=== PATIENT | female | born 1945 | race Caucasian/White ===

== ENCOUNTER → 2016-11-05 | Outpatient (REF) | payer MEDICARE ==
[~2016-11-05] MED LIST: /PANT40TA PO; ASPI81TA85 PO; CITRACAL PO; CRES5TAB PO; CYMB1CAP PO; FLUC100T PO; IBUP80TA PO; MYCO500T PO; NEUR600T PO; OMEG100011 PO; REFROIN OU; RELP40TA PO; SING5CHW PO; SYNT50TA PO; TEMA30CA PO; VITAD1000T PO; [UNRECOGNIZED DRUG - CODE] TOP; skelaxin PO
[2016-11-05 17:30] LABS: PERCENT SATURATION 22.8 % (13.2-37.4)
== END ==
LOC: M LAB REF 16:40
PROVIDERS: ATTEND Internal Medicine
DX: Z14.8 Genetic carrier of other disease (principal)

== ENCOUNTER 2016-12-07 17:06 | Emergency (ER) | payer MEDICARE ==
[~2016-12-07] VITALS: Ht 149.9 cm; Wt 49.2 kg
[2016-12-07 17:06] VITALS: BP 144/71
[~2016-12-07 17:06] MED LIST changes: -CLOT10TR MT; -FENT12PA TD; -FENT25PA TD; -FISH1000 PO; -GABA600T PO; -HYDR100T PO; -LANS15CA PO; -LEVO25TA5 PO; -LEVO500T3 PO; -LEVO50TA5 PO; -LIDO1KIT9 TOP; -METR0.00 TOP; -MONT10TA2 PO; -MORP-38 PO; -MORP15TA2 PO; -NORCOTAB PO; -ONDA4TAB6 PO; -ROSU5TAB PO; -SF 51.1C MT; -TEMA15CA2 PO; -TEMA7.5C PO; -VITA-182 PO
[2016-12-07] MEDS ORDERED: METR0.00 TOP (17:39)
[2016-12-07] MEDS ORDERED: LANS15CA PO (17:39)
[2016-12-07] MEDS ORDERED: TEMA7.5C PO (17:39)
[2016-12-07] MEDS ORDERED: RELP40TA PO (17:39)
[2016-12-07] MEDS ORDERED: FENT12PA TD (17:39)
[2016-12-07] MEDS ORDERED: TEMA15CA2 PO (17:39)
[2016-12-07] MEDS ORDERED: ROSU5TAB PO (17:39)
[2016-12-07] MEDS ORDERED: NORCOTAB PO (17:55)
[2016-12-07] MEDS ORDERED: NORCO, ANEXSIA 5/325MG TABLET (HYDROcodone/ACETAMINOPHEN) PO ONE (18:00)
[2017-01-22] MEDS ORDERED: FENT25PA TD (09:35)
[2017-01-22] MEDS ORDERED: VITA-182 PO (09:35)
[2017-01-22] MEDS ORDERED: LEVO25TA5 PO (09:35)
[2017-01-22] MEDS ORDERED: FISH1000 PO (09:35)
[2017-01-22] MEDS ORDERED: GABA600T PO (09:35)
[2017-01-22] MEDS ORDERED: MORP15TA2 PO (09:35)
[2017-01-22] MEDS ORDERED: MORP-38 PO (09:35)
[2017-02-08] MEDS ORDERED: ONDA4TAB6 PO (16:31)
[2017-02-08] MEDS ORDERED: LEVO500T3 PO (16:31)
[2017-03-04] MEDS ORDERED: HYDR100T PO (17:32)
== END 2016-12-07 18:05 | disposition home or self-care (01) ==
LOC: M ED 17:06
DX: M54.17 Radiculopathy, lumbosacral region (principal); M54.42 Lumbago with sciatica, left side; G89.29 Other chronic pain; J45.909 Unspecified asthma, uncomplicated; M79.7 Fibromyalgia; E78.9 Disorder of lipoprotein metabolism, unspecified; E07.9 Disorder of thyroid, unspecified; G25.81 Restless legs syndrome; G43.909 Migraine, unspecified, not intractable, without status migrainosus; Z91.041 Radiographic dye allergy status; Z88.8 Allergy status to other drugs, medicaments and biological substances; Z88.5 Allergy status to narcotic agent; Z79.899 Other long term (current) drug therapy; Z79.891 Long term (current) use of opiate analgesic

== ENCOUNTER → 2016-12-07 | Outpatient (CLI) | payer MEDICARE ==
[~2016-12-07] MED LIST changes: +CLOT10TR MT; +FENT12PA TD; +FENT25PA TD; +FISH1000 PO; +GABA600T PO; +HYDR100T PO; +LANS15CA PO; +LEVO25TA5 PO; +LEVO500T3 PO; +LEVO50TA5 PO; +LIDO1KIT9 TOP; +METR0.00 TOP; +MONT10TA2 PO; +MORP-38 PO; +MORP15TA2 PO; +NORCOTAB PO; +ONDA4TAB6 PO; +ROSU5TAB PO; +SF 51.1C MT; +TEMA15CA2 PO; +TEMA7.5C PO; +VITA-182 PO
--- NOTE | 2016-12-07 12:58 | REP ---
Clinical: Radiculopathy. Technique: Axial noncontrast images from mid T11 through mid sacrum with coronal and sagittal re-formations. Comparison: 04/12/2015. Findings: Alignment and lordosis maintained and there is no evidence for acute fracture / compression injury or subluxation. Small posterior disc bulges are suggested at the L2-3 and L5-S1 levels without significant hypertrophic facet changes, canal stenosis or narrowing of the lateral recesses/neural foramen. Small posterior disc bulges at the L3-4 and L4-5 levels coupled with mild hypertrophic facet arthropathy and ligamentum hypertrophy cause minimal effacement of the anterior thecal sac and mild canal stenosis without evidence for neural foraminal narrowing or impingement of the exiting nerve roots. Impression: 1. Mild posterior disc bulges at L2-3 through L5-S1 with mild facet arthropathy and minimal canal stenosis at the L3-4 and L4-5 levels. 2. Normal alignment and lordosis without fracture / compression injury or subluxation. Signed by Urban Jenkins MD 12/07/2016 12:49 P
== END ==
LOC: M RAD 09:35
PROVIDERS: ATTEND Registered Nurse Critical Care Medicine
DX: M51.26 Other intervertebral disc displacement, lumbar region (principal); M54.5 Low back pain; M54.17 Radiculopathy, lumbosacral region; M54.42 Lumbago with sciatica, left side; G89.29 Other chronic pain; J45.909 Unspecified asthma, uncomplicated; M79.7 Fibromyalgia; E78.9 Disorder of lipoprotein metabolism, unspecified; E07.9 Disorder of thyroid, unspecified; G25.81 Restless legs syndrome; G43.909 Migraine, unspecified, not intractable, without status migrainosus; Z91.041 Radiographic dye allergy status; Z88.5 Allergy status to narcotic agent; Z88.8 Allergy status to other drugs, medicaments and biological substances; Z79.899 Other long term (current) drug therapy; Z79.891 Long term (current) use of opiate analgesic

== ENCOUNTER → 2017-01-07 | Outpatient (REF) | payer MEDICARE ==
[~2017-01-07] MED LIST changes: +CLOT10TR MT; +FENT12PA TD; +FENT25PA TD; +FISH1000 PO; +GABA600T PO; +HYDR100T PO; +LANS15CA PO; +LEVO25TA5 PO; +LEVO500T3 PO; +LEVO50TA5 PO; +LIDO1KIT9 TOP; +METR0.00 TOP; +MONT10TA2 PO; +MORP-38 PO; +MORP15TA2 PO; +NORCOTAB PO; +ONDA4TAB6 PO; +ROSU5TAB PO; +SF 51.1C MT; +TEMA15CA2 PO; +TEMA7.5C PO; +VITA-182 PO
[2017-01-07 12:42] LABS: INR 0.97
[2017-01-07 12:44] LABS: BASO % 0.7 % (0.0-1.0); EOS % 0.8 % (0.0-3.0); LARGE UNSTAINED CELL # 0.1 K/mm3 (0.0-0.4); LARGE UNSTAINED CELL % 1.3 % (0.0-4.0); LYMPH # 1.6 K/mm3 (1.5-4.5); LYMPH % 23.2 % (24.0-44.0); MEAN CORPUSCULAR HEMOGLOBIN 31.5 pg (27.0-33.0); MEAN CORPUSCULAR HGB CONC 34.2 g/dl (32.0-36.5); MEAN CORPUSCULAR VOLUME 92.3 fl (80.0-96.0); MONO # 0.4 K/mm3 (0.0-0.8); MONO % 5.4 % (0.0-5.0); NEUTROPHILS # 4.5 K/mm3 (1.8-7.7); NEUTROPHILS % 68.6 % (36.0-66.0); PLATELET COUNT, AUTOMATED 180 k/mm3 (150-450); RED CELL DISTRIBUTION WIDTH 12.6 % (11.5-14.5); WHITE BLOOD COUNT 6.5 K/mm3 (4.0-10.0)
[2017-01-07 12:47] LABS: BLOOD UREA NITROGEN 9 MG/DL (7-18); CREATININE FOR GFR 0.76 MG/DL (0.55-1.02); GLOMERULAR FILTRATION RATE > 60.0 (>39)
== END ==
LOC: M LABDRAW1 11:20
PROVIDERS: ATTEND Physician Assistant Surgical
DX: M51.36 Other intervertebral disc degeneration, lumbar region (principal); M54.16 Radiculopathy, lumbar region

== ENCOUNTER 2017-02-03 12:33 | Inpatient (IN) | payer MEDICARE ==
[~2017-02-03] VITALS: Ht 149.9 cm; Wt 64.4 kg
[~2017-02-03 12:33] MED LIST changes: -CLOT10TR MT; -HYDR100T PO; -LEVO500T3 PO; -LEVO50TA5 PO; -LIDO1KIT9 TOP; -MONT10TA2 PO; -ONDA4TAB6 PO; -SF 51.1C MT
[2017-02-03] MEDS ORDERED: NS 500 ML IV ONE (13:00)
--- NOTE | 2017-02-03 13:21 | REP ---
CT Head without contrast HISTORY: Syncope COMPARISON: None Areas of decreased attenuation are present in the periventricular and subcortical white matter. This represents small-vessel ischemic disease. There is no intraparenchymal hemorrhage, acute infarct, mass or midline shift. The ventricular system is normal in appearance. There is no extra cerebral collection. There is no fracture. The visualized sinuses are clear. IMPRESSION: Small vessel ischemic disease. Signed by Дмитрий Menendez MD 02/03/2017 01:12 P
[2017-02-03 13:27] LABS: ADD MANUAL DIFFER YES; DIFF SLIDE NUMBER 226; MEAN CORPUSCULAR HEMOGLOBIN 31.6 pg (27.0-33.0); MEAN CORPUSCULAR HGB CONC 35.2 g/dl (32.0-36.5); MEAN CORPUSCULAR VOLUME 89.7 fl (80.0-96.0); PLATELET COUNT, AUTOMATED 139 k/mm3 (150-450); RED CELL DISTRIBUTION WIDTH 12.4 % (11.5-14.5)
[2017-02-03 13:41] LABS: INR 1.09
[2017-02-03 13:47] LABS: ALBUMIN 3.2 GM/DL (3.2-5.2); ALBUMIN/GLOBULIN RATIO 0.78 (1.00-1.93); ALKALINE PHOSPHATASE 84 U/L (45-117); ALT/SGPT 27 U/L (12-78); ANION GAP 11 MEQ/L (8-16); AST/SGOT 37 U/L (15-37); BILIRUBIN,DIRECT 0.2 MG/DL (0.0-0.2); BILIRUBIN,TOTAL 0.8 MG/DL (0.2-1.0); BLOOD UREA NITROGEN 7 MG/DL (7-18); CALCIUM LEVEL 9.5 MG/DL (8.8-10.2); CARBON DIOXIDE LEVEL 23 MEQ/L (21-32); CHLORIDE LEVEL 99 MEQ/L (98-107); CREATININE FOR GFR 0.87 MG/DL (0.55-1.02); GLOMERULAR FILTRATION RATE > 60.0 (>39); GLUCOSE, FASTING 95 MG/DL (83-110); POTASSIUM SERUM 3.5 MEQ/L (3.5-5.1); SODIUM LEVEL 133 MEQ/L (136-145); TOTAL PROTEIN 7.3 GM/DL (6.4-8.2)
--- NOTE | 2017-02-03 13:47 | REP ---
PORTABLE CHEST X-RAY: Sitting AP view. HISTORY: Sepsis, shock. COMPARISON STUDY: April 16, 2016. FINDINGS: EKG monitoring electrodes overlie the chest. The patient is status post a ventral discectomy and fusion plating in the lower cervical spine. A dorsal column stimulator is seen in the mid thoracic spine. The lungs are well inflated and clear. The heart is not enlarged. Aorta is somewhat tortuous. No significant bony abnormality is seen. IMPRESSION: No active cardiopulmonary disease. Dorsal column stimulator and cervical spine fusion plate seen. Signed by Neil Diane MD 02/03/2017 05:02 P
[2017-02-03 13:59] LABS: BANDS 10 % (< 11)
--- NOTE | 2017-02-03 15:14 | HPEPDOC ---
Medical History and Physical Date of Admission 02/03/17 History and Physical ATTENDING: Dr. Vázquez PCP: Dr Wynne CC: syncopal episode HPI: 71yoF with a past medical history significant for hypothyroid, HLD, GERD, migraine AMBROCIO who states she most recently had a CT myelogram in [place] 01/14/17 through [facility]. She was given steroid course after procedure and was treated for thrush. Over past 1 week she has noticed thoracic spine pain. Wednesday nausea and vomiting with decreased po intake since Wednesday. Yesterday feeling weak and lethargic, nauseated and last PM noticed fever 101-102. This AM she recalls getting OOB and felt weak and dizzy and states she had syncopal episode at bedside, states she does not recall episode. later found her at bathroom door weak and shaky. Also noted AMBROCIO this AM now much worse with photophobia and requesting triptan. Denies any CP, SOB, cough, palpitations, no abdominal pain or changes in bowel or bladder habits. Upon presentation to the hospital the patient was found to have syncopal episode , thus the hospitalist team was consulted. PMHx: hypothyroid migraine AMBROCIO. Dr Thompson. HLD anxiety/insomnia RLS chronic pain/chronic back pain/hip pain. [facility]. 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 ROS: As noted in HPI, otherwise 11pt ROS of systems reviewed and remarkable only for recent CT Myelogram [place] 01/14/17. Seeing Orthopedics Dr May for hip pain and [facility] pain. PE: GEN: 71yoF, appears stated age. reporting pain and photophobia related to migraine pain currently. Alert and oriented x 3. HEENT: Normocephalic, atraumatic. Pupils are equal, round, and reactive to light. Extraocular movements are intact. No nystagmus appreciated. Sclera are nonicteric. Conjunctiva without injection. Nose midline. Nasal turbinates without bogginess. EACs both patent BL. TMs both visualized and gibbs with good cone of light, no bulging or erythema. No facial asymmetry. Moist mucous membranes. Dentition fair. Pharynx pink and moist, no cobblestoning. Neck supple , trachea midline. No lymphadenopathy or thyromegaly appreciated. CHEST: Regular rate and rhythm, +S1, +S2 LUNGS: Clear to auscultation bilaterally. No wheezes, rales, or rhonchi. Breathing appears symmetric and easy. Patient is speaking in full sentences. No accessory muscle use. ABD: Round, soft, non-tender, non-distended. +Bowel sounds throughout. No rebound or guarding. No costovertebral angle tenderness. EXT: Pulses 2+ bilaterally dorsalis pedis and radial. No lower extremity edema appreciated. SKIN: [place], dry, warm. Capillary refill <2sec. No rashes. NEURO: Alert and oriented x 3. Cranial nerves III-XII are intact. healed surgical scar noted thoracic spine area, TTP is noted over lower aspect of incision area. CXR: No active cardiopulmonary disease. Dorsal column stimulator and cervical spine fusion plate seen CT: small vessel disease BLOOD CULTURES: x 2 pending. A&P: 71yoF with a past medical history significant for hypothyroid, HLD, GERD, migraine AMBROCIO who states she most recently had a CT myelogram in [place] 01/14/17 through [facility]. She was given steroid course after procedure and was treated for thrush. Over past 1 week she has noticed thoracic spine pain. Wednesday nausea and vomiting with decreased po intake since Wednesday. Yesterday feeling weak and lethargic, nauseated and last PM noticed fever 101-102. This AM she recalls getting OOB and felt weak and dizzy and states she had syncopal episode at bedside, states she does not recall episode. later found her at bathroom door weak and shaky. Also noted AMBROCIO this AM now much worse with photophobia and requesting triptan. 1. The patient will be admitted to PCU for at least 2midnights to Dr. Vázquez's service. Pt is discussed with Dr Worthy. 2. N/V/Weakness/fever. IVF at 100cc/hr. Zofran as needed. BC/UC pending. ESR/ CRP pending. 3. Thoracic spine pain (h/o CT myelogram in [place] 01/14/17) CT with contrast head, T spine and LS spine. Premedicate for possible allergy to contrast. Consider ID CLt if needed. IV Cefepime/Vanco. Dosing as per Clinical pharmacology. 4. Syncope. PCU/TM. 5. Chronic pain. Continue Fentanyl patch, pt has not been using Morphine. 6. Asthma. Continue Singulair. 7. Hypothyroid. Cont supplement. 8. Thrush. Pt to finish course of Mycelex. 9. Insomnia. Restoril. 10. HLD. Crestor. DVT prophylaxis. Lovenox. The patient is a Full code. Vital Signs Vital Signs Date Time Temp Pulse Resp B/P (MAP) Pulse Ox O2 Delivery O2 Flow Rate FiO2 02/03/17 14:49 101.4 16 108/63 (78) 99 Room Air 02/03/17 14:48 118 122 119 Laboratory Data Labs 24H Laboratory Tests 2 02/03/17 13:04: Lactic Acid Level 1.4 02/03/17 13:06: Neutrophils 78H, Band Neutrophils 10, Lymphocytes (Manual) 8L, Monocytes (Manual ) 4, Platelet Estimate DECREASED, Red Blood Cell Morphology NORMAL, Anion Gap 11 , Glomerular Filtration Rate > 60.0, Calcium Level 9.5, Aspartate Amino Transf ( AST/SGOT) 37, Alanine Aminotransferase (ALT/SGPT) 27, Alkaline Phosphatase 84, Total Bilirubin 0.8, Direct Bilirubin 0.2, Total Creatine Kinase 115, Creatine Kinase MB 1.0, Creatine Kinase MB Relative Index 0.86, Troponin I < 0.02, Total Protein 7.3, Albumin 3.2, Albumin/Globulin Ratio 0.78L 02/03/17 13:24: Prothrombin Time 14.3, Prothromb Time International Ratio 1.09, Activated Partial Thromboplast Time 30.1 CBC/BMP Laboratory Tests 02/03/17 13:06 Red Blood Count 4.25, Mean Corpuscular Volume 89.7, Mean Corpuscular Hemoglobin 31.6, Mean Corpuscular Hemoglobin Concent 35.2, Red Cell Distribution Width 12.4 Microbiology Microbiology 02/03/17 Blood Culture, Received Pending 02/03/17 Blood Culture, Received Pending 02/03/17 Group A Streptococcus Screen (CRESCENCIO), Received Pending Home Medications Scheduled Cholecalciferol (Vitamin D3) 1,000 Unit Cap, 2,000 UNIT PO DAILY Clotrimazole (Clotrimazole) 10 Mg Troc, 10 MG MT 5XD Fentanyl (Fentanyl) 25 Mcg Tdsy, 25 MCG TD Q3RD APPLIED TO RIGHT ARM Fish Oil (Fish Oil) 1,000 Mg Cap, 1,000 MG PO DAILY Gabapentin (Gabapentin) 600 Mg Tab, 600 MG PO TID Lansoprazole (Lansoprazole) 15 Mg Cap, 15 MG PO BID Levothyroxine Sodium (Synthroid) 50 Mcg Tab, 50 MCG PO DAILY Montelukast Sodium (Montelukast Sodium) 10 Mg Tab, 10 MG PO QHS Rosuvastatin Calcium (Rosuvastatin Calcium) 5 Mg Tab, 5 MG PO QHS Temazepam (Temazepam) 7.5 Mg Cap, 22.5 MG PO QHS Scheduled PRN (Lido-Prilo Gilbert Pack 2.5-2.5 %) 1 Kit Kit, 1 DOSE TOP QID PRN for PAIN Eletriptan Hydrobromide (Relpax) 40 Mg Tab, 1 TAB PO BID PRN for MIGRAINE Metronidazole (Metronidazole 0.75% Crm) 1 Dose/45 Gm Cream, 1 DOSE TOP PRN PRN for ROSACEA Morphine Sulfate (Morphine Sulfate) 15 Mg Tab, 7.5 MG PO BID PRN for PAIN Sodium Fluoride (Sf 5000 Plus) 1.1 % Cre, 1 DOSE MT ASDIRECTED PRN for SENSITIVE TEETH Allergies Coded Allergies: Contrast Media (Verified Allergy, Intermediate, hives, 01/22/17) Codeine (Verified Allergy, Mild, RASH, 01/22/17) Acetaminophen (Verified Adverse Reaction, Intermediate, migraines, 01/22/17 ) Amitriptyline (Verified Adverse Reaction, Intermediate, ASSOCIATE BUYER SYMPTOMS/ INTERUPTION IN BLADDER, 01/22/17) Carisoprodol (Verified Adverse Reaction, Mild, nausea, 01/22/17) Cyclobenzaprine (Verified Adverse Reaction, Mild, lethargy, 01/22/17) Metaxalone (Verified Adverse Reaction, Mild, headache, 01/22/17) Methocarbamol (Verified Adverse Reaction, Mild, headache, 01/22/17) Milnacipran (Verified Adverse Reaction, Mild, lethargy, 01/22/17) NSAIDs (Verified Adverse Reaction, Mild, headache, 01/22/17) Oxycodone (Verified Adverse Reaction, Mild, lethargy, 01/22/17) Quetiapine (Verified Adverse Reaction, Mild, bruising, 01/22/17) Rizatriptan (Verified Adverse Reaction, Mild, lethargy, 01/22/17) Tizanidine (Unverified Adverse Reaction, Unknown, INTENSE PAIN, 02/03/17) GME ATTESTATION GME ATTESTATION My preceptor for this patient encounter was physically present in the building during the encounter and was fully available. As needed, all aspects of the patient interview, examination, medical decision making process, and medical care plan development were reviewed and approved by the preceptor. Preceptor is aware and concurs with the plan as stated in the body of this note and will attest to such by his/her cosignature. ATTENDING NOTE I have both independently examined this patient as well as reviewed the note. I have discussed in detail with the resident the findings and plan of treatment as documented in the note. I will continue to follow the patient and offer further guidance to the patients care as necessary during this hospital stay. Veila Noguera MD Feb 03, 2017 15:14 RADHA WORTHY MD Feb 04, 2017 12:09
[2017-02-03] MEDS ORDERED: CLOT10TR MT (15:23)
[2017-02-03] MEDS ORDERED: LEVO50TA5 PO (15:23)
[2017-02-03] MEDS ORDERED: LIDO1KIT9 TOP (15:26)
[2017-02-03] MEDS ORDERED: MONT10TA2 PO (15:26)
[2017-02-03] MEDS ORDERED: SF 51.1C MT (15:29)
[2017-02-03] MEDS: GABAPENTIN 300 MG CAP PO SCH ×2 (16:00→22:21)
[2017-02-03] MEDS ORDERED: diphenhydrAMINE INJ 50MG/ML VIAL (J1200) IV ONE (16:00)
[2017-02-03] MEDS ORDERED: VANCOMYCIN HCL 1,000 MG, VIAL MATE ADAPTER 1 EACH in D5W 250 ML IV ONE (16:00)
[2017-02-03] MEDS ORDERED: methylPREDNISolone INJ 40 MG/1 ML VIAL (J2920) IV ONE (16:00)
[2017-02-03] MEDS ORDERED: NS 1,000 ML IV SCH (16:11)
[2017-02-03] MEDS ORDERED: ONDANSETRON 4MG/2ML VIAL (J2405) IV PRN (16:15)
[2017-02-03 16:37] LABS: ERYTHROCYTE SEDIMENTATION RATE 57 mm/hr (0-30)
[2017-02-03] MEDS ORDERED: ELETRIPTAN 40 MG PO PRN (16:45)
[2017-02-03] MEDS: KCL 20MEQ in NS 1000ML 1,000 ML IV SCH (18:00)
[2017-02-03] MEDS: CEFEPIME HCL 2 GM in D5W MINI-BAG PLUS 50 ML IV SCH (18:27)
[2017-02-03] MEDS: CLOTRIMAZOLE 10 MG TROCHE MT SCH ×2 (19:29→22:23)
[2017-02-03] MEDS ORDERED: ISOVUE-370 76% 100ML VIAL (Q9967) As Ordered ONE (20:33)
[2017-02-03 20:45] VITALS: BP 79/49
[2017-02-03] MEDS ORDERED: SODIUM CHLORIDE 0.9% 1000 ML IV ONE ×2 (20:45)
[2017-02-03] MEDS ORDERED: TEMAZEPAM 7.5 MG CAP PO SCH (21:00)
--- NOTE | 2017-02-03 21:16 | REP ---
Clinical: Back pain. Rule out abscess. Technique: Axial contrast enhanced images of the thoracic spine from C7 through mid L1 using 100 ml Isovue 370 intravenous contrast material with coronal and sagittal re-formations. Findings: The thoracic vertebral bodies are normal in contour, size and alignment. There is no evidence for acute fracture / compression injury or subluxation. The disc spaces are relatively well maintained and normal alignment / kyphosis is appreciated. Incidental note is made of a epidural stimulator at the T6-7 level. The paraspinous musculature and soft tissues appear normal. No mass lesion, fluid collection, abscess or drainable collection is identified. Incidental note is made of 2.2 cm hepatic cyst in the posterior segment right lobe which is unchanged when compared to CT of the abdomen dated 2004. Impression: 1. Essentially normal, age-appropriate appearance to the thoracic spine. Epidural stimulator identified at the T6-7 level. No acute fracture / compression injury or subluxation. Normal paraspinous soft tissues. No mass, fluid or abscess identified. 2. Stable 2.2 cm hepatic cyst unchanged compared to 2004. Signed by Urban Jenkins MD 02/03/2017 09:08 P
--- NOTE | 2017-02-03 21:19 | REP ---
Clinical: Back pain. Rule out abscess. Technique: Axial contrast enhanced images from mid T12 through mid sacrum using 100 ml Isovue 370 intravenous contrast material with coronal and sagittal re-formations. Comparison: 12/07/2016, 04/12/2015. Findings: The vertebral bodies are normal in contour, size and overall appearance. Alignment and lordosis maintained. No acute fracture / compression injury or subluxation. Disc spaces are relatively normal for age minimal anterior/marginal osteophytes are identified. The neural foramen appear patent bilaterally. The spinous processes are intact. The spinal canal appears normal. The paraspinous soft tissues and musculature appear relatively normal and without mass lesion, fluid collection, or drainable collection/abscess. Impression: Essentially normal, age-appropriate lumbosacral spine CT. No significant changes compared to 12/07/2016. No acute fracture / compression injury or subluxation. No evidence for abscess. Signed by Urban Jenkins MD 02/03/2017 09:11 P
--- NOTE | 2017-02-03 21:38 | REP ---
Clinical: Acute on chronic headaches. Technique: Axial contrast enhanced images from the skull base to the vertex using 100 ml Isovue 370 intravenous contrast material. Comparison: Noncontrast head CT dated 02/03/2017 at 01:01 p.m.. Findings: Age-related atrophy and microvascular ischemic changes are appreciated. The ventricles and sulci are symmetric. Preston-white differentiation is maintained. There is no evidence for acute intracranial hemorrhage, mass/mass effect, pathology or infarction. No abnormal enhancing mass lesions or findings appreciated. No extra-axial fluid collection. Calvarium is intact. Paranasal sinuses and mastoid air cells are clear. Impression: Age related atrophy and microvascular ischemic changes. No acute intracranial hemorrhage, infarction, or mass/mass effect. No enhancing mass lesion or pathology appreciated. Signed by Urban Jenkins MD 02/03/2017 09:29 P
[2017-02-03] MEDS: MONTELUKAST 10 MG TAB PO SCH (22:20)
[2017-02-03] MEDS: ROSUVASTATIN 10 MG TAB (CRESTOR) PO SCH (22:22)
[2017-02-03] MEDS: HEPARIN SOD (PORCINE) 5000 UNITS/ML VIAL SQ SCH (22:24)
[2017-02-04] VITALS (11 sets, daily range): BP systolic 81–120; BP diastolic 51–63
[2017-02-04] MEDS: KCL 20MEQ in NS 1000ML 1,000 ML IV SCH ×4 (00:29→13:23)
[2017-02-04] MEDS ORDERED: SODIUM CHLORIDE 0.9% 1000 ML IV ONE (02:00)
[2017-02-04] MEDS: CEFEPIME HCL 2 GM in D5W MINI-BAG PLUS 50 ML IV SCH ×2 (04:58→19:11)
[2017-02-04] MEDS: LEVOTHYROXINE 50MCG TABLET (0.05MG) PO SCH (05:29)
[2017-02-04] MEDS: CLOTRIMAZOLE 10 MG TROCHE MT SCH ×5 (05:49→22:05)
[2017-02-04 07:35] LABS: BASO % 0.1 % (0.0-1.0); EOS % 0.1 % (0.0-3.0); LARGE UNSTAINED CELL # 0.1 K/mm3 (0.0-0.4); LYMPH # 0.7 K/mm3 (1.5-4.5); LYMPH % 6.8 % (24.0-44.0); MEAN CORPUSCULAR HEMOGLOBIN 30.5 pg (27.0-33.0); MEAN CORPUSCULAR HGB CONC 33.3 g/dl (32.0-36.5); MEAN CORPUSCULAR VOLUME 91.6 fl (80.0-96.0); MONO # 0.3 K/mm3 (0.0-0.8); MONO % 3.6 % (0.0-5.0); NEUTROPHILS # 8.2 K/mm3 (1.8-7.7); NEUTROPHILS % 88.4 % (36.0-66.0); PLATELET COUNT, AUTOMATED 102 k/mm3 (150-450); RED CELL DISTRIBUTION WIDTH 12.9 % (11.5-14.5); WHITE BLOOD COUNT 9.2 K/mm3 (4.0-10.0)
[2017-02-04 08:05] LABS: ALBUMIN 2.3 GM/DL (3.2-5.2); ALBUMIN/GLOBULIN RATIO 0.79 (1.00-1.93); ALKALINE PHOSPHATASE 64 U/L (45-117); ALT/SGPT 26 U/L (12-78); ANION GAP 9 MEQ/L (8-16); AST/SGOT 32 U/L (15-37); BILIRUBIN,TOTAL 0.2 MG/DL (0.2-1.0); BLOOD UREA NITROGEN 9 MG/DL (7-18); CALCIUM LEVEL 7.6 MG/DL (8.8-10.2); CARBON DIOXIDE LEVEL 17 MEQ/L (21-32); CHLORIDE LEVEL 122 MEQ/L (98-107); CREATININE FOR GFR 0.53 MG/DL (0.55-1.02); GLOMERULAR FILTRATION RATE > 60.0 (>39); GLUCOSE, FASTING 123 MG/DL (83-110); MAGNESIUM LEVEL 1.9 MG/DL (1.8-2.4); POTASSIUM SERUM 3.9 MEQ/L (3.5-5.1); SODIUM LEVEL 148 MEQ/L (136-145); T UPTAKE 42 % (30-39); THYROXINE (T4) 9.2 UG/DL (4.5-12.0); TOTAL PROTEIN 5.2 GM/DL (6.4-8.2)
[2017-02-04 08:44] LABS: ERYTHROCYTE SEDIMENTATION RATE 60 mm/hr (0-30)
[2017-02-04] MEDS: HEPARIN SOD (PORCINE) 5000 UNITS/ML VIAL SQ SCH ×2 (09:00→22:08)
[2017-02-04] MEDS ORDERED: ENOXAPARIN 40 MG/0.4 ML SYRINGE (J1650) SC SCH (09:00)
--- NOTE | 2017-02-04 09:31 | IPN ---
DATE: 02/04/2017 Ms. Masters is feeling well this morning. She has no specific complaint. Back pain has been consistent. No chest pain. No shortness of breath. Temperature 97.1. Pulse 81. Respiratory rate 18. Blood pressure 108/63 up from some low pressures last night. Currently she is not orthostatic by blood pressure. Awake, appropriately interactive. Mucous membranes moist. Neck supple. Breathing is symmetrical and rested. Heart is in a regular rate and rhythm. No significant arrhythmia on the monitor. Abdomen soft, doughy, nontender. White cell count 9, hemoglobin 13.1, and platelets 139. BUN 7, creatinine 0.87, C-reactive protein 12.8. Blood cultures are preliminarily positive for gram negative rods. ASSESSMENT: This is a 71-year-old who presented with a syncopal episode and has positive blood cultures with unknown source. PLAN: 1. Infectious disease. The patient is on broad spectrum antibiotics. Will consult Dr. Curry for assistance in the patient's care. The possibility of relation to her increasing back pain is considered. 2. The patient has history of palpitations and syncopal episode and is on telemetry without evidence of arrhythmia. 3. The patient has asthma and is on Singulair. 4. The patient has hypothyroidism. 5. The patient has recent history of thrush. 6. The patient has hyperlipidemia.
[2017-02-04] MEDS: GABAPENTIN 300 MG CAP PO SCH ×3 (10:13→22:07)
--- NOTE | 2017-02-04 10:28 | REP ---
Right upper quadrant sonography: History: Right upper quadrant pain. Comparison sonography November 25, 2010. Findings: Scanning through the right upper quadrant of the abdomen shows a normal sized gallbladder without evidence of stone or polyp. Gallbladder wall is borderline measured at 0.3 cm in thickness. Common bile duct is normal measuring 0.5 cm in greatest diameter. There is a septated cyst in the right lobe of the liver. These measure 2.1 cm in greatest diameter. No other focal liver lesion is seen. Limited views of the pancreas show no abnormality. There is no evidence of ascites or right renal abnormality. The right kidney measures 9.2 x 4.0 x 4.6 cm. There is a small amount of right pleural fluid visible. Impression: 2.1 cm septated cyst in the right lobe of the liver. Tiny sliver of right pleural fluid. Otherwise no significant abnormality. Signed by Neil Diane MD 02/04/2017 02:36 P
[2017-02-04] MEDS ORDERED: ACETAMINOPHEN TAB 650MG DOSE (2X325MG) PO PRN (15:30)
[2017-02-04 15:45] LABS: GLUCOSE CSF 81 MG/DL (40-75)
--- NOTE | 2017-02-04 16:04 | REP ---
LUMBAR PUNCTURE: The procedure was performed by RHYS Mosher under the direct supervision of Dr. Menendez. The procedure along with its risks, benefits, and complications were discussed with the patient prior to the procedure. Informed consent was obtained both verbally and written. The patient was identified in the x-ray suite and placed in a prone/ slight right oblique position. Fluoroscopy guidance was used to find an appropriate site. This area was marked, prepped and draped in the usual sterile fashion. A procedural "time out" was performed to ensure that the correct patient, site and procedure were being performed. Local infiltrative anesthesia was achieved using 1% lidocaine. A 22-gauge spinal needle was placed at L2-3 and advanced to the thecal sac. Retrograde free flow of clear CSF was obtained. 12 mL of CSF were removed and sent to the lab for further evaluation. Results pending. The needle was then removed. Hemostasis was achieved and a soft dressing was applied to the entry site. The patient tolerated the procedure well and had no immediate complications. IMPRESSION: Uncomplicated lumbar puncture. Fluoroscopy time was 10 seconds. Reviewed by RHYS Disla 02/04/2017 04:08 PEdited and Signed by Дмитрий Menendez MD 02/04/2017 04:10 P
[2017-02-04 19:22] LABS: APPEARANCE, CSF CLEAR (CLEAR); COLOR, CSF COLORLESS (COLORLESS); CSF DIFF IF INDICATED? NO (NO); CSF TUBE# CELL CNT TUBE 4
[2017-02-04 19:28] LABS: APPEARANCE, CSF CLEAR (CLEAR); COLOR, CSF COLORLESS (COLORLESS); CSF TUBE# CELL CNT TUBE 1
[2017-02-04 19:29] LABS: CSF DIFF IF INDICATED? NO (NO); CSF DILUENT LOT # 6333; RBC CSF AUTO 102 /mm3 (0-0); WBC CSF AUTO 3 /mm3 (0-10)
[2017-02-04 19:30] LABS: RBC CSF AUTO 10 /mm3 (0-0); WBC CSF AUTO 2 /mm3 (0-10)
[2017-02-04 19:31] LABS: CSF DILUENT LOT # 6333
[2017-02-04] MEDS: ROSUVASTATIN 10 MG TAB (CRESTOR) PO SCH (22:06)
[2017-02-04] MEDS: MONTELUKAST 10 MG TAB PO SCH (22:07)
[2017-02-05] VITALS: BP 125/56
[2017-02-05] MEDS: KCL 20MEQ in NS 1000ML 1,000 ML IV SCH ×2 (01:36→08:49)
[2017-02-05 04:00] VITALS: BP 114/64
[2017-02-05] MEDS: CLOTRIMAZOLE 10 MG TROCHE MT SCH ×3 (04:58→12:46)
[2017-02-05] MEDS: CEFEPIME HCL 2 GM in D5W MINI-BAG PLUS 50 ML IV SCH (04:58)
[2017-02-05] MEDS: LEVOTHYROXINE 50MCG TABLET (0.05MG) PO SCH (04:59)
--- NOTE | 2017-02-05 05:52 | ECGEPIP ---
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
[2017-02-05 06:00] VITALS: BP_SYST 123; BP_SYST 138; BP_SYST 142; BP_DIAS 59; BP_DIAS 65; BP_DIAS 67
[2017-02-05 07:07] LABS: BASO % 0.3 % (0.0-1.0); EOS % 0.4 % (0.0-3.0); LARGE UNSTAINED CELL # 0.1 K/mm3 (0.0-0.4); LARGE UNSTAINED CELL % 1.3 % (0.0-4.0); LYMPH # 1.6 K/mm3 (1.5-4.5); MEAN CORPUSCULAR HGB CONC 32.8 g/dl (32.0-36.5); MEAN CORPUSCULAR VOLUME 91.5 fl (80.0-96.0); MONO # 0.4 K/mm3 (0.0-0.8); MONO % 4.9 % (0.0-5.0); PLATELET COUNT, AUTOMATED 102 k/mm3 (150-450)
[2017-02-05 07:16] LABS: ALBUMIN 2.4 GM/DL (3.2-5.2); ALBUMIN/GLOBULIN RATIO 0.75 (1.00-1.93); ALKALINE PHOSPHATASE 61 U/L (45-117); ALT/SGPT 38 U/L (12-78); ANION GAP 7 MEQ/L (8-16); AST/SGOT 50 U/L (15-37); BILIRUBIN,TOTAL 0.3 MG/DL (0.2-1.0); BLOOD UREA NITROGEN 7 MG/DL (7-18); CALCIUM LEVEL 8.1 MG/DL (8.8-10.2); CARBON DIOXIDE LEVEL 19 MEQ/L (21-32); CHLORIDE LEVEL 122 MEQ/L (98-107); CREATININE FOR GFR 0.64 MG/DL (0.55-1.02); GLOMERULAR FILTRATION RATE > 60.0 (>39); GLUCOSE, FASTING 89 MG/DL (83-110); MAGNESIUM LEVEL 1.9 MG/DL (1.8-2.4); POTASSIUM SERUM 3.7 MEQ/L (3.5-5.1); SODIUM LEVEL 148 MEQ/L (136-145); TOTAL PROTEIN 5.6 GM/DL (6.4-8.2)
[2017-02-05 08:00] VITALS: BP_SYST 118; BP_SYST 124; BP_SYST 128; BP_DIAS 62; BP_DIAS 65; BP_DIAS 68
[2017-02-05] MEDS: GABAPENTIN 300 MG CAP PO SCH ×2 (08:47→16:11)
[2017-02-05] MEDS: HEPARIN SOD (PORCINE) 5000 UNITS/ML VIAL SQ SCH (08:52)
[2017-02-05 12:00] VITALS: BP 123/79
[2017-02-05] MEDS ORDERED: LORazepam 1 MG TAB PO PRN (15:30)
[2017-02-05] MEDS ORDERED: LEVO500T3 PO (15:37)
[2017-02-05] MEDS ORDERED: LevoFLOXacin 500 MG TABLET PO ONE (16:00)
[2017-02-06] MEDS ORDERED: FENTANYL REMOVAL DOCUMENTATION MISC XX SCH (09:00)
[2017-02-06] MEDS ORDERED: fentaNYL 25 MCG/HR PATCH TD SCH (09:00)
--- NOTE | 2017-02-07 14:29 | ECHO ---
DATE OF PROCEDURE: 02/05/2017 HEIGHT: 59 inches. WEIGHT: 110 pounds. BODY SURFACE AREA: 1.43 meters squared. REFERRING PHYSICIAN: Dr. Serena Gonzalez INDICATION: Fever. Syncope. MEASUREMENTS: 2D Measurements: RV - 2.4 cm LV - 4.2 cm Septum - 0.8 cm Posterior wall - 0.7 cm Aortic root - 2.8 cm LA - 2.5 cm LVEF - 60 percent DOPPLER MEASUREMENTS: AV - 1.1 meters per second LVOT - 0.7 meters per second LVOT diameter - 2.0 cm MV - E - 81, A - 62, E/A ratio 1.3 Early mitral deceleration time - 130 milliseconds E prime 8.7, A prime 8.4, E/E prime ratio 9.3 PV - 0.65 meters per second Pulmonary artery acceleration time - 113 milliseconds RVSP - 39 mmHg IVC - 1.8 cm COMMENTS: Two-dimensional, M-mode, color flow, tissue Doppler, pulsed Doppler and continuous wave Doppler studies were performed. Underlying normal sinus rhythm without intraventricular conduction disturbance. Isolated PVC. Unable to detect a structural or functional cardiovascular cause for the patient's syncopal spell or fever. Normal cardiac chamber sizes and wall thickness and wall motion. Normal Doppler assessment of LV diastolic function. Mild pulmonary hypertension. Subtle aortic valvular sclerosis without functional valvular abnormality. Subtle mitral annular calcification with mild insufficiency.
[2017-02-08] MEDS ORDERED: LEVO500T3 PO (16:31)
[2017-02-08] MEDS ORDERED: ONDA4TAB6 PO (16:31)
--- NOTE | 2017-02-09 14:41 | CR ---
DATE OF CONSULTATION: 02/04/2017 Patient was seen at 8 p.m. Asked to consult by hospitalist for evaluation of fever, headache, and gram-negative bacteremia. HISTORY OF PRESENT ILLNESS: Mrs. Masters is a 71-year-old female who has not been feeling well for the past month prior to admission. The patient stated that she had some anorexia and increased belching and, therefore, was getting a gastrointestinal (GI) workup done by Dr. Glynn. She had increased back pain and bilateral hip pain and, therefore, also had a CT myelogram done at [facility] on 01/14/2017. She was given a course of steroid after procedure and was treated for thrush. Over the past week, she was having increased thoracic spine pain, right upper quadrant pain, nausea, and vomiting with decreased oral intake. As she was getting ready to take the prep for her endoscopy and colonoscopy, she developed severe nausea and vomited all of the prep with a fever of 101-102. She was getting out of bed, felt weak and dizzy, and then had a syncopal episode. Patient cannot recall that episode. Her found her in the bathroom door very weak and shaky. She complained of a headache. Patient has a history of migraines and, therefore, took a triptan. She denied any chest pain, shortness of breath. No cough, palpitations. No abdominal pain. The patient had also stated she was having some issues with urinary retention but currently is feeling better and was able to urinate without dysuria, flank pain, or hematuria. In the emergency room, she had two blood cultures done that are positive for gram-negative rods. A urine culture is pending. PAST MEDICAL HISTORY: Significant for: Hypothyroidism. Migraine headaches, followed up by Dr. Bran. Hyperlipidemia. Anxiety. Insomnia. Restless leg syndrome. Chronic pain syndrome, followed up at the [facility]. Asthma. Gastroesophageal reflux disease. PAST SURGICAL HISTORY: (C) section. Hysterectomy. Appendectomy. Cervical fusion 2014. SOCIAL HISTORY: She resides in [place]. She is . She has two kids. Her is an head grower; he owned [employer] but is currently retired. She denies any alcohol or drug use or cigarette smoking. FAMILY HISTORY: Mother had dementia, and father of a myocardial infarction. REVIEW OF SYSTEMS: She had a fever and chills that have resolved currently. She had nausea, vomiting, some right upper quadrant pain, back pain, hip pain. Headache has improved. No upper or lower extremity weakness. Temperature on admission was 103.7, currently is 97.4. Pulse 86, respirations 20, blood pressure 98/55, oxygen saturation 97% on room air. HEART: Normal S1, S2. No murmurs, rubs, or gallops. LUNGS: Are clear. No wheezes, rales, or rhonchi. ABDOMEN: Is soft. Tender in the right upper quadrant. No rebound tenderness. BACK: No costovertebral angle (CVA) tenderness. She has lumbosacral tenderness and has mild trochanteric bursitis tenderness. EXTREMITIES: No clubbing, cyanosis, or edema. No calf tenderness. No rashes. NECK: Is supple. No jugular venous distention (JVD). No bruits. Oropharynx is clear with no thrush. LABS: From 02/04/2017, white count 9.2, hemoglobin 10.9, hematocrit 32.8, platelets 102, 88% neutrophils, 7% lymphocytes, 3% monocytes, ESR 60. Sodium 148, potassium 3.9, chloride 122, bicarbonate 17, BUN 9, creatinine 0.5, glucose 123, calcium 7.6, magnesium 1.9, AST 32, ALT 26, alkaline phosphatase 64, CRP 16.7, total protein 5.2, albumin 2.3, TSH 0.093, free T4 of 3.9. ALLERGIES: - TYLENOL - AMITRIPTYLINE - SOMA - CODEINE - CONTRAST - CYCLOBENZAPRINE - METAXALONE - METHOCARBAMOL - NONSTEROIDAL ANTI-INFLAMMATORY DRUGS (NSAIDs) - OXYCODONE - QUETIAPINE - RIZATRIPTAN - TIZANIDINE MEDICATIONS: - fentanyl - Singulair 10 mg by mouth nightly - Crestor 5 mg by mouth nightly - Mycelex 10 mg five times a day - cefepime 2 grams IV every 12 hours - potassium through the IV - Zofran as needed - gabapentin 600 mg by mouth three times a day IMAGING: Chest x-ray on admission showed no acute cardiopulmonary process, dorsal column stimulator, and cervical fusion plate. head CT workup of syncope showed small vessel disease. Thoracic CT Normal and age appropriate. Stable 2.2 cm hepatic cyst unchanged compared to 2005. Liver ultrasound shows a 2.1 cm septated cyst in the right lobe of the liver, a tiny sliver of right pleural fluid. Otherwise, no significant abnormality. No evidence of ascites. Lumbar puncture was done under fluoroscopic guidance and was uncomplicated. Blood cultures, two sets, were positive for gram-negative rods, 20 minutes apart. Group A streptococcus was negative. Urine culture pending. Cerebrospinal fluid (CSF), Gram stain negative culture was pending. CSF has 2 white cells and 10 red cells, 81 glucose, and 65 total protein. IMPRESSION: This is a 71-year-old female who was admitted with fever, chills, nausea, and vomiting, has gram-negative bacteremia, had an episode of urinary retention but now does not have any urinary symptoms. She continues complaining of right upper quadrant pain with GI symptoms, anorexia, and increased belching that have been ongoing for a while. The patient is scheduled for endoscopy and colonoscopy by Dr. Glynn; it was supposed to be this week. Gram-negative bacteremia is most likely of GI or genitourinary () source. It could be just a urinary tract infection with bacteremia but also should rule out infection of this hepatic cyst, as it is septated and could be the source of bacteremia. Patient has improved with IV cefepime. PLAN: Continue IV cefepime until results of final blood cultures and urine culture. If urine culture is positive and similar to blood culture, then probably the urine is the source. Will review with radiology tomorrow whether this liver cyst needs to be drained if it is septated and suggestive of an infection. Otherwise, this is most likely of urinary origin. Review ultrasound in the morning. Case was discussed with Dr. Gordon Vázquez. [facility] HOSPITALGiovanni
[2017-03-04] MEDS ORDERED: HYDR100T PO (17:32)
--- NOTE | 2017-03-08 08:52 | DSES ---
DATE OF ADMISSION: 02/03/2017 DATE OF DISCHARGE: 02/05/2017 SPECIALIST INVOLVED IN CARE: Dr. Curry. COMPLICATIONS OF HER STAY: None. PROCEDURES PERFORMED DURING STAY: None. DISCHARGE DIAGNOSES: 1. Syncope. 2. Positive blood cultures. 3. Palpitations. 4. Asthma. 5. Hypothyroidism. 6. Hyperlipidemia. 7. Thrush. 8. Anxiety. 9. Insomnia. 10. Migraine headaches. 11. Chronic pain. 12. Gastroesophageal reflux disease. SUMMARY OF HER HOSPITALIZATION: This is a 71-year-old who had not been feeling well for a month. She presented with anorexia and gastrointestinal (GI) symptoms. She had increased back and hip pain. She had a CT myelogram done. She has been having increasing spine pain, right upper quadrant pain, nausea and vomiting with decreasing intake. She had a fever, weakness and developed a syncopal episode. A liver ultrasound showed a septated cyst in the right lobe of the liver. She had a lumbar puncture done. She was admitted to the hospitalist service. She was treated with appropriate antibiotics. She was seen in consultation by Dr. Curry. We pursued the idea of potentially draining the cyst, but it was thought to be in a difficult location and not amenable to drainage. She had improving symptoms and was planned to go under endoscopy and colonoscopy in the near term. She improved with appropriate antibiotic therapy and was deemed appropriate for discharge. Urine grew E. Coli as well during the stay. On the day of discharge, she is feeling well. She still has pain, but she is much improved. No complaints of chest pain or shortness of breath. She has been afebrile for over 24 hours. On discharge, she is awake, alert and pleasantly conversant. Breathing is symmetrical and rested. Heart is distant sounding. Normal S1, S2. White cell count is 8.0, hemoglobin 10.8 and platelets of 102. Sodium 148, creatinine 0.64. CRP is trending downward at 8.68. DISCHARGE INSTRUCTIONS (Include the following): Followup at Dr. Wynne's office within the next week. Diet and activity as tolerated. Continue vitamin D 2000 units daily, clotrimazole dusty 10 mg by mouth five times a day, Valpex as needed for migraine, fentanyl 25 mcg every third day, gabapentin 600 mg three times a day, Prevacid 15 mg twice daily, Synthroid 50 mcg daily, topical lidocaine as needed, and Flagyl cream as needed, Singulair 10 mg by mouth daily, morphine 7.5 mg twice daily as needed for pain, Crestor 5 mg by mouth daily at bedtime, temazepam 22.5 mg by mouth daily at bedtime, and antibiotics as arranged by Dr. Curry.
== END 2017-02-05 17:24 | disposition home or self-care (01) | DRG 872 ==
LOC: M ED 12:33 → M ED INP 16:32 → M PCU 02-04 05:12
PROVIDERS: ADMIT Hospitalist; ATTEND Internal Medicine
PROC: 009U3ZX Drainage of Spinal Canal, Percutaneous Approach, Diagnostic (ICD-10-PCS; principal; 2017-02-04)
DX: R78.81 Bacteremia (principal); B37.0 Candidal stomatitis; N39.0 Urinary tract infection, site not specified; R55 Syncope and collapse; E03.9 Hypothyroidism, unspecified; E78.5 Hyperlipidemia, unspecified; K21.9 Gastro-esophageal reflux disease without esophagitis; G43.909 Migraine, unspecified, not intractable, without status migrainosus; F41.9 Anxiety disorder, unspecified; G47.00 Insomnia, unspecified; G25.81 Restless legs syndrome; J45.909 Unspecified asthma, uncomplicated; M54.6 Pain in thoracic spine; Z98.1 Arthrodesis status; G89.29 Other chronic pain; Z79.899 Other long term (current) drug therapy; Z91.041 Radiographic dye allergy status; Z88.5 Allergy status to narcotic agent; Z88.6 Allergy status to analgesic agent; Z88.8 Allergy status to other drugs, medicaments and biological substances; K76.89 Other specified diseases of liver; B96.29 Other Escherichia coli [E. coli] as the cause of diseases classified elsewhere

== ENCOUNTER → 2017-02-10 | Outpatient (CLI) | payer MEDICARE ==
[~2017-02-10] MED LIST changes: +CLOT10TR MT; +HYDR100T PO; +LEVO500T3 PO; +LEVO50TA5 PO; +LIDO1KIT9 TOP; +MONT10TA2 PO; +ONDA4TAB6 PO; +READI-CAT 2 As Ordered ONE; +SF 51.1C MT
--- NOTE | 2017-02-10 15:06 | REP ---
Clinical: Right upper quadrant pain. Comparison: CT dated 01/03/2014; US dated 02/04/2017. Findings: Lung bases are clear. Visualized heart and pericardium normal. Liver demonstrates 2.1 cm cyst in the posterior segment right lobe corroborated with recent ultrasound. Spleen, pancreas, gallbladder, bilateral adrenal glands and kidneys are normal. The enteric system including stomach, duodenum, small and large bowel is unremarkable and without obstruction or acute inflammatory process. Colonic and sigmoid diverticula noted without acute diverticulitis. Pelvis demonstrates normal bladder and evidence for prior hysterectomy. No ascites. No free air. No adenopathy. Abdominal aorta without aneurysm. Surrounding musculoskeletal structures are intact. Impression: 1. No acute abdominopelvic pathology appreciated. Specifically, no free fluid, adenopathy, or inflammatory stranding noted throughout the abdomen and pelvis. 2. Stable 2.1 cm benign hepatic cyst. 3. Sigmoid diverticulosis without acute diverticulitis. Signed by Urban Jenkins MD 02/10/2017 02:57 P
== END ==
LOC: M RAD 12:42 → M LAB 12:42
PROVIDERS: ATTEND Nurse Practitioner Adult Health
DX: R10.11 Right upper quadrant pain (principal); R50.9 Fever, unspecified; R11.0 Nausea

== ENCOUNTER → 2017-02-23 | Outpatient (REF) | payer MEDICARE ==
[~2017-02-23] MED LIST changes: -READI-CAT 2 As Ordered ONE
== END ==
LOC: M LAB REF 10:28
PROVIDERS: ATTEND Internal Medicine
DX: R50.9 Fever, unspecified (principal)

== ENCOUNTER 2017-03-10 11:49 | Outpatient (CLI) | payer MEDICARE ==
[~2017-03-10] VITALS: Ht 149.9 cm; Wt 50.3 kg
[2017-03-10] MEDS ORDERED: NS 1,000 ML IV ONE (12:00)
[2017-03-10] MEDS ORDERED: LIDOCAINE 2% INJ 100 MG/5 ML SDV (FOR ANES.) As Ordered ONE (12:50)
[2017-03-10] MEDS ORDERED: PROPOFOL 200 MG/20 ML VIAL As Ordered ONE ×2 (12:50→13:12)
--- NOTE | 2017-03-10 13:15 | ROOR ---
Patient Name: Martita Masters Procedure Date: 03/10/2017 12:57 PM Date of : 1945 Age: 71 Room: [facility] Gender: Female Note Status: Finalized Procedure: Upper Endoscopy + Biopsies Indications: Heartburn, Exclusion of Rosas's esophagus Providers: Matteo Glynn MD Referring MD: MARYAN MARRERO JR, MD Requesting Provider: Medicines: Monitored Anesthesia Care Complications: No immediate complications. Procedure: Pre-Anesthesia Assessment: - The heart rate, respiratory rate, oxygen saturations, blood pressure, adequacy of pulmonary ventilation, and response to care were monitored throughout the procedure. The Endoscope was introduced through the mouth, and advanced to the second part of duodenum. The upper GI endoscopy was accomplished without difficulty. The patient tolerated the procedure well. Findings: The Z-line was irregular and was found 35 cm from the incisors. Multiple biopsies were obtained with cold forceps for evaluation to rule out Rosas's Esophagus randomly at the gastroesophageal junction. No other significant abnormalities were identified in a careful examination of the stomach. The exam of the duodenum was otherwise normal. Impression: - Z-line irregular, 35 cm from the incisors. - Multiple biopsies were obtained at the gastroesophageal junction. - The examination was otherwise normal. Recommendation: - Patient has a contact number available for emergencies. The signs and symptoms of potential delayed complications were discussed with the patient. Return to normal activities tomorrow. Written discharge instructions were provided to the patient. - High fiber diet. - Discharge patient to home. - Continue present medications. - Await pathology results. - Telephone GI clinic for pathology results in 1 week. - Check Portal Online for Path Results.([email or web address]) - Repeat upper endoscopy for surveillance based on pathology results. - Return to referring physician. - The findings and recommendations were discussed with the patient's family. Matteo Glynn MD Matteo Glynn MD 03/10/2017 1:14:36 PM This report has been signed electronically. Number of Addenda: 0 Note Initiated On: 03/10/2017 12:57 PM Estimated Blood Loss: Estimated blood loss: none.
--- NOTE | 2017-03-10 13:31 | ROOR ---
Patient Name: Martita Masters Procedure Date: 03/10/2017 12:58 PM Date of : 1945 Age: 71 Room: [facility] Gender: Female Note Status: Finalized Procedure: Total Colonoscopy to Cecum Indications: Screening for colorectal malignant neoplasm Providers: Matteo Glynn MD Referring MD: MARYAN MARRERO JR, MD Requesting Provider: Medicines: Monitored Anesthesia Care Complications: No immediate complications. Procedure: Pre-Anesthesia Assessment: - The heart rate, respiratory rate, oxygen saturations, blood pressure, adequacy of pulmonary ventilation, and response to care were monitored throughout the procedure. The Colonoscope was introduced through the anus and advanced to the cecum, identified by appendiceal orifice and ileocecal valve. The colonoscopy was performed without difficulty. The patient tolerated the procedure well. The quality of the bowel preparation was good. Findings: The perianal and digital rectal examinations were normal. Non-bleeding internal hemorrhoids were found during retroflexion. The hemorrhoids were small and Grade I (internal hemorrhoids that do not prolapse). No other significant abnormalities were identified in a careful examination of the remainder of the colon. The exam was otherwise without abnormality on direct and retroflexion views. Impression: - Non-bleeding internal hemorrhoids. - The examination was otherwise normal on direct and retroflexion views. - No specimens collected. - The exam was otherwise normal to the cecum. Recommendation: - Patient has a contact number available for emergencies. The signs and symptoms of potential delayed complications were discussed with the patient. Return to normal activities tomorrow. Written discharge instructions were provided to the patient. - High fiber diet. - Discharge patient to home. - Continue present medications. - Repeat colonoscopy for symptoms only. - Return to referring physician. - The findings and recommendations were discussed with the patient's family. Matteo Glynn MD Matteo Glynn MD 03/10/2017 1:30:46 PM This report has been signed electronically. Number of Addenda: 0 Note Initiated On: 03/10/2017 12:58 PM Estimated Blood Loss: Estimated blood loss: none.
[2017-03-10 13:55] VITALS: BP 128/69
== END 2017-03-10 14:09 | disposition home or self-care (01) ==
LOC: M OPP 11:49
PROVIDERS: ATTEND Internal Medicine Gastroenterology
DX: Z12.11 Encounter for screening for malignant neoplasm of colon (principal); K64.0 First degree hemorrhoids; R12 Heartburn; K22.8 Other specified diseases of esophagus; E78.5 Hyperlipidemia, unspecified; E03.9 Hypothyroidism, unspecified; K59.00 Constipation, unspecified; M19.90 Unspecified osteoarthritis, unspecified site; M54.9 Dorsalgia, unspecified; Z87.440 Personal history of urinary (tract) infections; Z97.8 Presence of other specified devices; Z88.8 Allergy status to other drugs, medicaments and biological substances; Z88.5 Allergy status to narcotic agent; Z91.041 Radiographic dye allergy status; Z79.899 Other long term (current) drug therapy; Z79.891 Long term (current) use of opiate analgesic
CPT/HCPCS: 43239; 88305; G0121

== ENCOUNTER → 2017-06-05 | Outpatient (CLI) | payer MEDICARE | LOC: M RAD 10:10 | DX: G43.719 Chronic migraine without aura, intractable, without status migrainosus (principal); I67.82 Cerebral ischemia | CPT/HCPCS: 70450 ==

== ENCOUNTER 2017-11-08 12:06 | Outpatient (RCR) | payer MEDICARE | END 2017-12-04 | LOC: M PT 12:06 | DX: Z51.89 Encounter for other specified aftercare (principal); M25.551 Pain in right hip; M25.552 Pain in left hip | CPT/HCPCS: 97110 ==

== ENCOUNTER 2017-12-06 08:50 | Outpatient (RCR) | payer MEDICARE | END 2018-01-04 | LOC: M PT 08:50 | DX: Z51.81 Encounter for therapeutic drug level monitoring (principal); M54.5 Low back pain; M25.551 Pain in right hip; M25.552 Pain in left hip | CPT/HCPCS: 97110 ==

== ENCOUNTER 2018-01-10 10:31 | Outpatient (RCR) | payer MEDICARE | END 2018-02-04 | LOC: M PT 01-12 09:38 | DX: M54.5 Low back pain (principal); M25.551 Pain in right hip; M25.552 Pain in left hip; Z51.89 Encounter for other specified aftercare | CPT/HCPCS: 97110 ==

== ENCOUNTER → 2018-03-28 | Outpatient (CLI) | payer MEDICARE | LOC: M RAD 18:17 | DX: M54.16 Radiculopathy, lumbar region (principal); M54.14 Radiculopathy, thoracic region; R25.2 Cramp and spasm; K76.89 Other specified diseases of liver; M47.892 Other spondylosis, cervical region; Z98.1 Arthrodesis status | CPT/HCPCS: 72128 ==

== ENCOUNTER → 2018-04-27 | Outpatient (CLI) | payer MEDICARE | LOC: M WUC 16:04 | DX: K59.00 Constipation, unspecified (principal) | CPT/HCPCS: 74018 ==

== ENCOUNTER 2018-05-03 21:03 | Emergency (ER) | payer MEDICARE ==
[2018-05-03 22:27] LABS: BASO # 0.1 10^3/uL (0.0-0.2); BASO % 0.9 % (0.0-1.0); EOS # 0.3 10^3/uL (0.0-0.50); EOS % 4.7 % (0.0-3.0); HEMATOCRIT 35.3 % (36.0-47.0); HEMOGLOBIN 11.3 g/dl (12.0-15.5); IMMATURE GRANULOCYTE % 0.6 % (0-3.0); LYMPH # 2.2 10^3/uL (1.5-4.5); LYMPH % 31.8 % (24.0-44.0); MEAN CORPUSCULAR HEMOGLOBIN 28.9 pg (27.0-33.0); MEAN CORPUSCULAR VOLUME 90.3 fl (80.0-96.0); MONO # 0.7 10^3/uL (0.0-0.8); MONO % 10.1 % (0.0-5.0); NEUTROPHILS # 3.6 10^3/uL (1.8-7.7); NEUTROPHILS % 51.9 % (36.0-66.0); PLATELET COUNT, AUTOMATED 194 10^3/uL (150-450); RED BLOOD COUNT 3.91 10^6/uL (4.00-5.40); RED CELL DISTRIBUTION WIDTH 13.3 % (11.5-14.5); WHITE BLOOD COUNT 6.9 10^3/uL (4.0-10.0)
[2018-05-03 22:41] LABS: KETONE, URINE AUTO RFX NEGATIVE (NEGATIVE); LEUKOCYTE ESTERASE UR AUTO RFX NEGATIVE (NEGATIVE); NITRITE, URINE AUTO RFX NEGATIVE (NEGATIVE); RBC, URINE AUTO RFX 1 /HPF (0-3); SPECIFIC GRAVITY UR AUTO RFX 1.001 (1.002-1.035); SQUAM EPITHELIAL CELL UR AURFX 0 /HPF (0-6); WBC, URINE AUTO RFX 0 /HPF (0-3)
[2018-05-03] MEDS: GABAPENTIN 300 MG CAP PO (22:45)
[2018-05-03] MEDS: DICYCLOMINE 10 MG CAP PO (22:45)
[2018-05-03 22:50] LABS: ALBUMIN 3.1 GM/DL (3.2-5.2); ALBUMIN/GLOBULIN RATIO 0.94 (1.00-1.93); ALKALINE PHOSPHATASE 128 U/L (45-117); ALT/SGPT 26 U/L (12-78); ANION GAP 6 MEQ/L (8-16); AST/SGOT 22 U/L (7-37); BILIRUBIN,DIRECT < 0.1 MG/DL (0.0-0.2); BILIRUBIN,TOTAL 0.2 MG/DL (0.2-1.0); BLOOD UREA NITROGEN 8 MG/DL (7-18); CALCIUM LEVEL 8.6 MG/DL (8.8-10.2); CARBON DIOXIDE LEVEL 30 MEQ/L (21-32); CHLORIDE LEVEL 107 MEQ/L (98-107); CREATININE FOR GFR 0.72 MG/DL (0.55-1.30); GLOMERULAR FILTRATION RATE > 60.0 (>39); GLUCOSE, FASTING 90 MG/DL (70-100); LIPASE 104 U/L (73-393); SODIUM LEVEL 143 MEQ/L (136-145); TOTAL PROTEIN 6.4 GM/DL (6.4-8.2)
[2018-05-04] MEDS: LACTULOSE 20 GM/30 ML SYRUP UD PO (00:10)
== END 2018-05-04 00:23 | disposition home or self-care (01) ==
LOC: M ED 05-04 00:23
DX: K59.03 Drug induced constipation (principal); T40.605A Adverse effect of unspecified narcotics, initial encounter; R10.33 Periumbilical pain; R11.0 Nausea; M54.9 Dorsalgia, unspecified; G89.29 Other chronic pain; K21.9 Gastro-esophageal reflux disease without esophagitis; E03.9 Hypothyroidism, unspecified; G43.909 Migraine, unspecified, not intractable, without status migrainosus; G25.81 Restless legs syndrome; Z87.440 Personal history of urinary (tract) infections; Z91.041 Radiographic dye allergy status; Z88.6 Allergy status to analgesic agent; Z88.8 Allergy status to other drugs, medicaments and biological substances; Z88.5 Allergy status to narcotic agent; Z79.899 Other long term (current) drug therapy
CPT/HCPCS: 74021

== ENCOUNTER → 2018-10-10 | Outpatient (REF) | payer MEDICARE ==
[~2018-10-10] MED LIST changes: -/PANT40TA PO; +ALBU83IN INH; +CITRTAB13 PO; +DICY10CA13 PO; +ESOM1CAP5 PO; +FENT12DI12 TD; -FENT12PA TD; +FENT25DI33 TD; -FENT25PA TD; -GABA600T PO; +GABA600T4 PO; +HYDR-3715 PO; -NORCOTAB PO; +PROT1TAB2 PO; -ROSU5TAB PO; +ROSU5TAB4 PO; +medical marijuana PO
== END ==
LOC: M LAB REF 17:01
PROVIDERS: ATTEND Internal Medicine
DX: M13.0 Polyarthritis, unspecified (principal)

== ENCOUNTER → 2018-11-21 | Outpatient (REF) | payer MEDICARE | LOC: M LAB REF 16:47 | PROVIDERS: ATTEND Internal Medicine | DX: M35.3 Polymyalgia rheumatica (principal) ==

== ENCOUNTER → 2018-12-05 | Outpatient (REF) | payer MEDICARE | LOC: M LAB REF 13:11 | PROVIDERS: ATTEND Internal Medicine | DX: M35.3 Polymyalgia rheumatica (principal) ==

== ENCOUNTER → 2018-12-15 | Outpatient (CLI) | payer MEDICARE ==
[~2018-12-15] MED LIST changes: -ROSU5TAB4 PO; +ROSU5TAB5 PO
--- NOTE | 2018-12-15 14:16 | REP ---
ABDOMINAL SERIES: Supine and erect views of the abdomen and pelvis demonstrate no free air and no evidence for obstruction. There is mild to moderate fecal material scattered diffusely throughout the colon. No dilated small bowel loops are seen. Small calcification in the left upper quadrant is probably vascular and is unchanged since 05/03/2018 exam. Dorsal column stimulator device is again noted. Metallic plate and screws are seen in the lower cervical spine. There are mild degenerative changes of the lumbar spine. The accompanying view of the chest demonstrates no acute infiltrate. The heart is normal in size and the mediastinal silhouette is unremarkable. IMPRESSION: No evidence of free air or obstruction. Electronically Signed by Fredy Preston MD 12/17/2018 10:17 A
[2018-12-15 15:43] LABS: BASO # 0.1 10^3/uL (0.0-0.2); BASO % 0.5 % (0.0-1.0); EOS % 0.2 % (0.0-3.0); HEMATOCRIT 45.1 % (36.0-47.0); HEMOGLOBIN 13.9 g/dl (12.0-15.5); LYMPH # 1.9 10^3/uL (1.5-4.5); LYMPH % 14.4 % (24.0-44.0); MEAN CORPUSCULAR HEMOGLOBIN 29.6 pg (27.0-33.0); MEAN CORPUSCULAR HGB CONC 30.8 g/dl (32.0-36.5); MONO # 0.8 10^3/uL (0.0-0.8); MONO % 5.9 % (0.0-5.0); NEUTROPHILS # 9.9 10^3/uL (1.8-7.7); NEUTROPHILS % 76.5 % (36.0-66.0); PLATELET COUNT, AUTOMATED 208 10^3/uL (150-450)
[2018-12-15 15:55] LABS: ALBUMIN 3.5 GM/DL (3.2-5.2); ALT/SGPT 31 U/L (12-78); AMYLASE 75 U/L (25-115); BILIRUBIN,TOTAL 0.3 MG/DL (0.2-1.0); BLOOD UREA NITROGEN 12 MG/DL (7-18); CARBON DIOXIDE LEVEL 32 MEQ/L (21-32); CHLORIDE LEVEL 103 MEQ/L (98-107); CREATININE FOR GFR 0.97 MG/DL (0.55-1.30); GLOMERULAR FILTRATION RATE > 60.0 (>39); GLUCOSE, FASTING 67 MG/DL (70-100); LIPASE 246 U/L (73-393); POTASSIUM SERUM 4.3 MEQ/L (3.5-5.1); SODIUM LEVEL 141 MEQ/L (136-145)
[2018-12-15 16:10] LABS: BACTERIA, URINE AUTO NEGATIVE (NEGATIVE); RBC, URINE AUTO 0 /HPF (0-3); SQUAMOUS EPITHELIAL CELL UR AU 0 /HPF (0-6); WBC, URINE AUTO 0 /HPF (0-3)
== END ==
LOC: M WUC 11:10
PROVIDERS: ATTEND Physician Assistant
DX: R10.13 Epigastric pain (principal); R14.0 Abdominal distension (gaseous); M54.9 Dorsalgia, unspecified

== ENCOUNTER → 2019-01-31 | Outpatient (REF) | payer MEDICARE ==
[~2019-01-31] MED LIST changes: +BENA25CA4 PO; -MORP-38 PO; +MORP-69 PO; +PRED50TA PO
[2019-01-31 14:11] LABS: C REACTIVE PROTEIN QUANTITATIV 1.87 MG/DL (0.00-0.30); TOTAL PROTEIN 6.3 GM/DL (6.4-8.2)
[2019-01-31 14:34] LABS: URINE TOTAL PROTEIN 9.3 MG/DL (0-12)
[2019-02-02 12:02] LABS: ALPHA-1-GLOBULIN % 6.4 % (2.9-4.9); ALPHA-2-GLOBULINS % 15.7 % (7.1-11.8)
[2019-02-02 12:03] LABS: ALBUMIN 3.59 GM/DL (3.29-5.55); ALPHA-2-GLOBULINS 0.99 GM/DL (0.42-0.99); BETA-1-GLOBULINS % 6.3 % (4.7-7.2); BETA-2-GLOBULINS 0.37 GM/DL (0.19-0.55); BETA-2-GLOBULINS % 5.8 % (3.2-6.5); GAMMA GLOBULIN % 8.8 % (11.1-18.8); GAMMA GLOBULINS 0.55 GM/DL (0.65-1.58)
[2019-02-02 15:24] LABS: UPEP INTERPRETATION NO M-SPIKE NOTED; URINE VOLUME RANDOM ML
[2019-02-04 00:06] LABS: ANCA-ATYPICAL 1:40 titer (Neg:<1:20); CYTOPLASMIC NEUTROP AB ANCA-C <1:20 titer (Neg:<1:20); PERINUCLEAR AB ANCA-P <1:20 titer (Neg:<1:20)
== END ==
LOC: M LAB REF 12:22
PROVIDERS: ATTEND Nurse Practitioner Adult Health
DX: M35.3 Polymyalgia rheumatica (principal); R70.0 Elevated erythrocyte sedimentation rate; R79.82 Elevated C-reactive protein (CRP)

== ENCOUNTER → 2019-02-10 | Outpatient (CLI) | payer MEDICARE ==
--- NOTE | 2019-02-10 14:53 | REP ---
CT MYELOGRAM LUMBAR SPINE: HISTORY: Low back pain. Status post cervical fusion. Neurogenic claudication. TECHNIQUE: The intrathecal injection of contrast is performed and dictated separately. Postcontrast helical scanning is acquired. Axial 4 mm images are reformatted along with coronal and sagittal MPR images. CT MYELOGRAPHIC FINDINGS: Lumbar vertebral body heights are preserved. Alignment is normal. There is no evidence of spondylolysis or spondylolisthesis. The tip of the conus medullaris is normal in position and appearance at T12-L1. Axial and sagittal images taken at the L1-2 disc level demonstrate minimal central disc bulging effacing the ventral margin of the thecal sac. No central canal stenosis or foraminal narrowing is seen. At L2-3, there is also minimal central disc bulging. No other finding. At L3-L4, there is diffuse disc bulging. Canal size is borderline due to disc bulging and developmentally short pedicles. Facets are unremarkable. Midline AP dimension of the thecal sac at L3-4 is 8 mm. At L4-5, there is diffuse disc bulging, slightly more prominent to the left of midline indenting the thecal sac. No bony foraminal narrowing is seen. No evidence of central canal stenosis. At L5-S1, there is mild diffuse disc bulging without thecal sac compression. Facet osteoarthritic hypertrophy and sclerosis is present bilaterally. IMPRESSION: Degenerative disc bulging at L4-5, L3-4 and L2-3. Borderline canal size at L3-4. No focal disc protrusion. Electronically Signed by Neil Diane MD 02/10/2019 04:45 P
[2019-02-10 15:35] VITALS: BP 151/79
--- NOTE | 2019-02-10 16:49 | REP ---
LUMBAR AND CERVICAL MYELOGRAM The procedure was performed under the personal supervision of Dr. Diane. The images were reviewed with Dr. Diane. The risks and benefits of the procedure were explained to the patient and informed consent was obtained. The L3-4 interspace was localized using fluoroscopic guidance. The skin was prepped and draped in a sterile fashion. 1% lidocaine was used as a local anesthetic. Using fluoroscopic guidance a 22-gauge spinal needle was inserted and advanced into the thecal sac. 10 ml of Isovue - M 300 was injected. The needle was then removed. Lumbar and cervical myelographic spot film findings: The lumbar thecal sac is opacified from L5 S1 to mid L3. Lumbar nerve root sleeves are symmetrically opacified. There is no evidence of nerve roots the amputation. Lateral film of the lumbar spine demonstrate ventral extradural indentation of the thecal sac at the level of the L4-5, L3-4, and L2-3 discs consistent with disc bulging. The L4-5 and L3-4 discs are narrowed in height. In the cervical canal there is some one limited thecal sac opacification particularly in the proximal cervical canal. No disc herniation is appreciated on limited cervical spine fluoroscopic spot filming. The patient was taken to CT scan for postprocedural imaging. The patient tolerated the procedure well and there were no immediate complications. After the appropriate amount of monitored convalescence the patient was discharged from the department. 0.9 minutes of fluoroscopy time was utilized for this procedure. Reviewed by RHYS Loza 02/10/2019 03:34 P Electronically Signed by Neil Diane MD 02/10/2019 04:40 P
--- NOTE | 2019-02-10 17:08 | REP ---
CT myelography cervical spine with intrathecal contrast: History: Neurogenic claudication. Pain. Status post cervical spine fusion. Technique: Intrathecal injection procedure is performed and dictated separately. Helical scanning is acquired and 2 mm axial images are reformatted. Coronal and sagittal MPR images are generated. CT myelographic findings: There is straightening of the normal cervical lordosis. The thecal sac is well opacified. The cervical cord shows normal course and caliber. No cord compressive lesion is seen. Axial and sagittal images at C2-3 show no significant finding. At C3-C4, there is minimal central disc bulging. No foraminal or central canal stenosis is seen. At C4-C5, there is degenerative narrowing of the C4-5 disc and anterior spurring is seen. There is minimal central disc bulging. No spinal stenosis is seen. No uncovertebral spurring is seen. There is a ventral discectomy fusion plate across the C5-C7 disc levels. There are intervertebral disc spacers in the fused C5-6 and C6-7 disc spaces. There is no evidence of residual or recurrent disc protrusion. There is some spray artifact from the metallic components of the fusion device. No foraminal stenosis is appreciated. The C7-T1 level is unremarkable. Impression: Status post ventral discectomy and fusion plating C5-C7. Straightening. Degenerative disc changes at C4-5 with minimal disc bulging. No cord compressive lesion or foraminal narrowing noted. Electronically Signed by Neil Diane MD 02/13/2019 07:53 A
== END ==
LOC: M RADPRO 12:22
PROVIDERS: ATTEND Orthopaedic Surgery Orthopaedic Surgery of the Spine
DX: M51.36 Other intervertebral disc degeneration, lumbar region (principal); M43.22 Fusion of spine, cervical region; M48.062 Spinal stenosis, lumbar region with neurogenic claudication

== ENCOUNTER → 2019-02-28 | Outpatient (REF) | payer MEDICARE | LOC: M LAB REF 13:21 | PROVIDERS: ATTEND Internal Medicine | DX: R79.82 Elevated C-reactive protein (CRP) (principal) ==

== ENCOUNTER → 2019-04-04 | Outpatient (REF) | payer MEDICARE | LOC: M LAB REF 16:47 | PROVIDERS: ATTEND Internal Medicine | DX: M35.3 Polymyalgia rheumatica (principal) ==

== ENCOUNTER → 2019-05-15 | Outpatient (REF) | payer MEDICARE | LOC: M LAB REF 13:13 | PROVIDERS: ATTEND Internal Medicine | DX: R79.82 Elevated C-reactive protein (CRP) (principal) ==

== ENCOUNTER → 2019-09-18 | Outpatient (REF) | payer MEDICARE ==
[~2019-09-18] MED LIST changes: -CITRTAB13 PO; +CITRTAB16 PO; -MONT10TA2 PO; +MONT10TA4 PO
== END ==
LOC: M LAB REF 12:16
PROVIDERS: ATTEND Internal Medicine
DX: M31.5 Giant cell arteritis with polymyalgia rheumatica (principal); Z79.899 Other long term (current) drug therapy

== ENCOUNTER → 2019-11-01 | Outpatient (CLI) | payer MEDICARE ==
[2019-11-01 16:11] LABS: BASO % 0.5 % (0.0-1.0); EOS # 0.1 10^3/uL (0.0-0.5); EOS % 0.9 % (0.0-3.0); HEMATOCRIT 35.9 % (36.0-47.0); HEMOGLOBIN 11.4 g/dl (12.0-15.5); LYMPH # 2.7 10^3/uL (1.5-5.0); LYMPH % 35.3 % (24.0-44.0); MEAN CORPUSCULAR HEMOGLOBIN 29.8 pg (27.0-33.0); MEAN CORPUSCULAR HGB CONC 31.8 g/dl (32.0-36.5); MEAN CORPUSCULAR VOLUME 93.7 fl (80.0-96.0); MONO % 13.1 % (0.0-5.0); NEUTROPHILS # 3.9 10^3/uL (1.5-8.5); NEUTROPHILS % 49.7 % (36.0-66.0); PLATELET COUNT, AUTOMATED 143 10^3/uL (150-450); RED BLOOD COUNT 3.83 10^6/uL (4.00-5.40); WHITE BLOOD COUNT 7.8 10^3/uL (4.0-10.0)
[2019-11-01 16:25] LABS: ALBUMIN 3.7 GM/DL (3.2-5.2); ALT/SGPT 25 U/L (12-78); BILIRUBIN,TOTAL 0.2 MG/DL (0.2-1.0); BLOOD UREA NITROGEN 11 MG/DL (7-18); CARBON DIOXIDE LEVEL 26 MEQ/L (21-32); CHLORIDE LEVEL 106 MEQ/L (98-107); CREATININE FOR GFR 0.92 MG/DL (0.55-1.30); FREE T4 1.01 NG/DL (0.76-1.46); GLOMERULAR FILTRATION RATE > 60.0 (>39); GLUCOSE, FASTING 89 MG/DL (70-100); POTASSIUM SERUM 3.9 MEQ/L (3.5-5.1); SODIUM LEVEL 141 MEQ/L (136-145); THYROID STIMULATING HORMONE 0.519 uIU/ML (0.358-3.740); TOTAL PROTEIN 6.3 GM/DL (6.4-8.2)
[2019-11-01 18:22] LABS: ERYTHROCYTE SEDIMENTATION RATE 9 mm/hr (0-30)
== END ==
LOC: M WUC 14:03
PROVIDERS: ATTEND Physician Assistant
DX: R22.43 Localized swelling, mass and lump, lower limb, bilateral (principal)

== ENCOUNTER → 2019-11-15 | Outpatient (CLI) | payer MEDICARE ==
[2019-11-15 12:34] LABS: BASO # 0.1 10^3/uL (0.0-0.2); BASO % 1.2 % (0.0-1.0); EOS # 0.2 10^3/uL (0.0-0.5); HEMATOCRIT 38.5 % (36.0-47.0); HEMOGLOBIN 12.5 g/dl (12.0-15.5); LYMPH # 1.8 10^3/uL (1.5-5.0); LYMPH % 31.1 % (24.0-44.0); MEAN CORPUSCULAR HEMOGLOBIN 29.9 pg (27.0-33.0); MEAN CORPUSCULAR HGB CONC 32.5 g/dl (32.0-36.5); MEAN CORPUSCULAR VOLUME 92.1 fl (80.0-96.0); MONO # 0.7 10^3/uL (0.0-0.8); MONO % 11.8 % (0.0-5.0); NEUTROPHILS % 52.5 % (36.0-66.0); PLATELET COUNT, AUTOMATED 158 10^3/uL (150-450); RED BLOOD COUNT 4.18 10^6/uL (4.00-5.40); WHITE BLOOD COUNT 5.7 10^3/uL (4.0-10.0)
[2019-11-15 12:41] LABS: ALBUMIN 3.6 GM/DL (3.2-5.2); ALT/SGPT 21 U/L (12-78); BILIRUBIN,TOTAL 0.2 MG/DL (0.2-1.0); BLOOD UREA NITROGEN 9 MG/DL (7-18); C REACTIVE PROTEIN QUANTITATIV < 0.30 MG/DL (0.00-0.30); CALCIUM LEVEL 9.2 MG/DL (8.8-10.2); CARBON DIOXIDE LEVEL 24 MEQ/L (21-32); CHLORIDE LEVEL 110 MEQ/L (98-107); CREATININE FOR GFR 0.93 MG/DL (0.55-1.30); GLOMERULAR FILTRATION RATE > 60.0 (>39); GLUCOSE, FASTING 87 MG/DL (70-100); POTASSIUM SERUM 3.9 MEQ/L (3.5-5.1); SODIUM LEVEL 142 MEQ/L (136-145); TOTAL PROTEIN 6.2 GM/DL (6.4-8.2)
[2019-11-15 12:59] LABS: ERYTHROCYTE SEDIMENTATION RATE 7 mm/hr (0-30)
== END ==
LOC: M WUC 10:00
PROVIDERS: ATTEND Internal Medicine Rheumatology
DX: Z51.81 Encounter for therapeutic drug level monitoring (principal); Z79.899 Other long term (current) drug therapy

== ENCOUNTER → 2020-02-16 | Outpatient (CLI) | payer MEDICARE ==
[~2020-02-16] MED LIST changes: +PRED20TA PO
[2020-02-16 20:47] LABS: BASO % 0.7 % (0.0-1.0); EOS # 0.1 10^3/uL (0.0-0.5); HEMATOCRIT 38.4 % (36.0-47.0); HEMOGLOBIN 12.3 g/dl (12.0-15.5); LYMPH # 2.4 10^3/uL (1.5-5.0); LYMPH % 39.7 % (24.0-44.0); MEAN CORPUSCULAR HEMOGLOBIN 29.7 pg (27.0-33.0); MEAN CORPUSCULAR VOLUME 92.8 fl (80.0-96.0); MONO # 0.7 10^3/uL (0.0-0.8); MONO % 11.4 % (0.0-5.0); NEUTROPHILS # 2.7 10^3/uL (1.5-8.5); PLATELET COUNT, AUTOMATED 166 10^3/uL (150-450); RED BLOOD COUNT 4.14 10^6/uL (4.00-5.40)
[2020-02-16 21:08] LABS: ALBUMIN 3.8 GM/DL (3.2-5.2); ALT/SGPT 21 U/L (12-78); BILIRUBIN,TOTAL 0.2 MG/DL (0.2-1.0); BLOOD UREA NITROGEN 12 MG/DL (7-18); CALCIUM LEVEL 9.1 MG/DL (8.8-10.2); CARBON DIOXIDE LEVEL 28 MEQ/L (21-32); CHLORIDE LEVEL 105 MEQ/L (98-107); GLOMERULAR FILTRATION RATE > 60.0 (>39); GLUCOSE, FASTING 87 MG/DL (70-100); POTASSIUM SERUM 3.9 MEQ/L (3.5-5.1); SODIUM LEVEL 136 MEQ/L (136-145); TOTAL PROTEIN 6.4 GM/DL (6.4-8.2)
[2020-02-16 21:12] LABS: ERYTHROCYTE SEDIMENTATION RATE 5 mm/hr (0-30)
== END ==
LOC: M WUC 15:30
PROVIDERS: ATTEND Internal Medicine Rheumatology
DX: M35.3 Polymyalgia rheumatica (principal)

== ENCOUNTER 2020-03-29 15:56 | Emergency (ER) | payer MEDICARE ==
[~2020-03-29] VITALS: Ht 149.9 cm; Wt 53.5 kg
[~2020-03-29 15:56] MED LIST changes: -PRED20TA PO
[2020-03-29] MEDS ORDERED: NS 1,000 ML IV SCH (16:45)
[2020-03-29] MEDS ORDERED: methylPREDNISolone 125MG 2ML VIAL IV ONE (16:45)
[2020-03-29] MEDS ORDERED: KETOROLAC 30 MG/ML 1ML VIAL IV ONE (17:00)
[2020-03-29 17:34] LABS: HEMATOCRIT 38.6 % (36.0-47.0); HEMOGLOBIN 12.7 g/dl (12.0-15.5); MEAN CORPUSCULAR HEMOGLOBIN 29.7 pg (27.0-33.0); MEAN CORPUSCULAR HGB CONC 32.9 g/dl (32.0-36.5); MEAN CORPUSCULAR VOLUME 90.4 fl (80.0-96.0); PLATELET COUNT, AUTOMATED 159 10^3/uL (150-450); RED BLOOD COUNT 4.27 10^6/uL (4.00-5.40); WHITE BLOOD COUNT 7.5 10^3/uL (4.0-10.0)
[2020-03-29 17:43] LABS: BLOOD UREA NITROGEN 12 MG/DL (7-18); CALCIUM LEVEL 9.2 MG/DL (8.8-10.2); CARBON DIOXIDE LEVEL 24 MEQ/L (21-32); CHLORIDE LEVEL 106 MEQ/L (98-107); CREATININE FOR GFR 0.89 MG/DL (0.55-1.30); GLOMERULAR FILTRATION RATE > 60.0 (>39); GLUCOSE, FASTING 137 MG/DL (70-100); POTASSIUM SERUM 4.1 MEQ/L (3.5-5.1); SODIUM LEVEL 136 MEQ/L (136-145)
[2020-03-29 17:46] LABS: INR 0.92; PROTHROMBIN TIME 12.6 SECONDS (12.5-14.3)
[2020-03-29] MEDS ORDERED: fentaNYL 100 MCG/2 ML INJECTION (J3010) IV ONE (18:45)
[2020-03-29 18:52] LABS: ERYTHROCYTE SEDIMENTATION RATE 7 mm/hr (0-30)
[2020-03-29] MEDS ORDERED: PRED20TA PO (19:07)
[2020-03-29 19:12] VITALS: BP 146/67
== END 2020-03-29 19:17 | disposition home or self-care (01) ==
LOC: M ED 15:56
DX: M31.6 Other giant cell arteritis (principal); Z79.899 Other long term (current) drug therapy; Z79.52 Long term (current) use of systemic steroids; Z91.041 Radiographic dye allergy status; Z88.8 Allergy status to other drugs, medicaments and biological substances; Z88.6 Allergy status to analgesic agent; Z88.5 Allergy status to narcotic agent
CPT/HCPCS: 80048; 85027; 85610; 85652; 86140; 96361; 96374; 96375; 99284; J1885; J2930; J3010

== ENCOUNTER → 2020-05-01 | Outpatient (REF) | payer MEDICARE ==
[~2020-05-01] MED LIST changes: +PRED20TA PO
== END ==
LOC: M LAB REF 11:20
PROVIDERS: ATTEND Physician Assistant Medical
DX: M81.0 Age-related osteoporosis without current pathological fracture (principal)

== ENCOUNTER → 2020-06-02 | Outpatient (CLI) | payer SELFPAY ==
[~2020-06-02] MED LIST changes: -MONT10TA4 PO; +MONT5TAB2 PO
== END ==
LOC: M LABSMTC 09:52
PROVIDERS: ATTEND Pediatrics
DX: Z20.828 Contact with and (suspected) exposure to other viral communicable diseases (principal)

== ENCOUNTER → 2020-10-15 | Outpatient (REF) | payer MEDICARE ==
[~2020-10-15] MED LIST changes: +MONT10TA10 PO; -MONT5TAB2 PO
== END ==
LOC: M LAB REF 12:16
PROVIDERS: ATTEND Internal Medicine
DX: M31.5 Giant cell arteritis with polymyalgia rheumatica (principal)

== ENCOUNTER → 2021-01-22 | Outpatient (REF) | payer MEDICARE | LOC: M LAB REF 16:48 | PROVIDERS: ATTEND Internal Medicine | DX: M31.6 Other giant cell arteritis (principal); Z79.899 Other long term (current) drug therapy ==

== ENCOUNTER → 2021-02-06 | Outpatient (REF) | payer MEDICARE ==
[~2021-02-06] MED LIST changes: +ACTE162I SC; +CIPR-249 PO; +FLAG500T PO; -LEVO500T3 PO; +LEVO500T4 PO; +MIRA3350 PO; -MONT10TA10 PO; +MONT10TA97 PO; +PROL60SO; +SENN8.6T28 PO; +SYST1SOL4 OS; +[UNRECOGNIZED DRUG - OTHER]
== END ==
LOC: M LAB REF 16:07
PROVIDERS: ATTEND Internal Medicine
DX: M81.0 Age-related osteoporosis without current pathological fracture (principal)

== ENCOUNTER 2021-02-23 10:45 | Inpatient (IN) | payer MEDICARE ==
[~2021-02-23] VITALS: Ht 149.9 cm; Wt 47.8 kg
[~2021-02-23 10:45] MED LIST changes: -ACTE162I SC; -CIPR-249 PO; -FLAG500T PO; +LEVO500T3 PO; -LEVO500T4 PO; -MIRA3350 PO; +MONT10TA10 PO; -MONT10TA97 PO; -PROL60SO; -SENN8.6T28 PO; -SYST1SOL4 OS; -[UNRECOGNIZED DRUG - OTHER]
[2021-02-23] MEDS ORDERED: PROL60SO (11:05)
[2021-02-23] MEDS ORDERED: [UNRECOGNIZED DRUG - OTHER] (11:08)
[2021-02-23] MEDS ORDERED: methylPREDNISolone 125MG 2ML VIAL IV ONE (12:25)
[2021-02-23] MEDS ORDERED: diphenhydrAMINE 50MG/ML VIAL (J1200) IV ONE (12:25)
[2021-02-23] MEDS ORDERED: NS 1,000 ML IV ONE ×2 (12:25→18:00)
[2021-02-23] MEDS ORDERED: ONDANSETRON 4MG/2ML VIAL IV ONE (12:25)
[2021-02-23 13:16] LABS: BASO % 0.4 % (0.0-1.0); EOS # 0.1 10^3/uL (0.0-0.5); HEMATOCRIT 39.5 % (36.0-47.0); HEMOGLOBIN 13.2 g/dl (12.0-15.5); LYMPH # 1.8 10^3/uL (1.5-5.0); LYMPH % 25.4 % (24.0-44.0); MEAN CORPUSCULAR HEMOGLOBIN 31.1 pg (27.0-33.0); MEAN CORPUSCULAR HGB CONC 33.4 g/dl (32.0-36.5); MEAN CORPUSCULAR VOLUME 92.9 fl (80.0-96.0); MONO # 0.7 10^3/uL (0.0-0.8); MONO % 10.3 % (2.0-8.0); NEUTROPHILS # 4.4 10^3/uL (1.5-8.5); NEUTROPHILS % 61.5 % (36.0-66.0); PLATELET COUNT, AUTOMATED 145 10^3/uL (150-450); RED BLOOD COUNT 4.25 10^6/uL (4.00-5.40); WHITE BLOOD COUNT 7.1 10^3/uL (4.0-10.0)
[2021-02-23 13:58] LABS: ALBUMIN 3.2 GM/DL (3.2-5.2); ALT/SGPT 37 U/L (12-78); BILIRUBIN,DIRECT < 0.1 MG/DL (0.0-0.2); BILIRUBIN,TOTAL 0.2 MG/DL (0.2-1.0); LIPASE 162 U/L (73-393); TOTAL PROTEIN 5.7 GM/DL (6.4-8.2)
[2021-02-23] MEDS ORDERED: ISOVUE-370 76% 100ML VIAL As Ordered ONE (14:09)
--- NOTE | 2021-02-23 16:11 | REP ---
INDICATION: no bm/pain will premedicate. COMPARISON: None. TECHNIQUE: Imaging protocol: Computed tomography of the abdomen and pelvis with IV contrast. Contiguous 3 mm thick axial projection images were obtained through the abdomen and pelvis. 2D sagittal and coronal reconstructions were performed. Radiation optimization: All CT scans at this facility use at least one of these dose optimization techniques: automated exposure control; mA and/or kV adjustment per patient size (includes targeted exams where dose is matched to clinical indication); or iterative reconstruction. Contrast material: ISOVUE 370; Contrast volume: 100 ml; Contrast route: INTRAVENOUS (IV). FINDINGS: Heart and lung bases: The lung bases are clear. There are no pleural effusions. The heart size is normal. There is no pericardial effusion. Liver: There is a 14 mm cyst in the posterior segment of the right hepatic lobe. Gallbladder: Normal. Spleen: Normal. Pancreas: Normal. Adrenal glands: Normal. Kidneys/bladder: The kidneys enhance normally. Urinary bladder has a normal unenhanced appearance. Pelvic structures: The uterus is surgically absent. The ovaries are not identified. There is no free fluid the pelvis. There is no pelvic or inguinal lymphadenopathy. GI tract: There is diffuse enhancement of the mucosa of the colon and there are air-fluid levels throughout the colon. In the distal colon there is loose stool. The colon is not abnormally dilated. The appendix is not demonstrated. The remainder of the gastrointestinal tract appears unremarkable. Abdominal wall and mesentery: There is no mesenteric or retroperitoneal lymphadenopathy. There are no abdominal wall defects. There is a intrathecal stimulator with device in the left buttock. Abdominal aorta and vascular structures: There is calcific vascular disease of the abdominal aorta. The inferior vena cava and portal venous system are normal. Bony structures: There is degenerative disc disease, L3-4 and L4-5. The SI joints and hips are normal. IMPRESSION: 1. Diffuse enhancement of the mucosa of the colon. Air-fluid levels throughout the colon. The findings are consistent with a nonspecific colitis. 2. Other findings as noted. Incidental Findings: Nonspecific colitis The critical information above was relayed directly by me by telephone to YONAS ALVARADO on 02/23/2021 at 4:06 pm with readback verification. <Electronically signed by Armand Ly > 02/23/21 [id number]
[2021-02-23] MEDS ORDERED: GLUCAGON INJ 1MG VIAL SC PRN (17:10)
[2021-02-23] MEDS ORDERED: DEXTROSE 50% 50 ML SYRINGE IV PRN (17:10)
[2021-02-23] MEDS ORDERED: MOM 30ML SUSPENSION UDC PO PRN (17:10)
[2021-02-23] MEDS ORDERED: GLUCOSE 4GM CHEW TABLET PO PRN (17:10)
[2021-02-23] MEDS ORDERED: MOM 30ML SUSPENSION UDC PO ONE (18:00)
[2021-02-23] MEDS ORDERED: FLUC100T PO (18:28)
[2021-02-23] MEDS ORDERED: ACTE162I SC (18:28)
[2021-02-23] MEDS ORDERED: SYST1SOL4 OS (18:28)
[2021-02-23] MEDS ORDERED: TEMA15CA2 PO (18:28)
[2021-02-23] MEDS ORDERED: HOME MED LIST COMPLETE! XX SCH (18:30)
--- NOTE | 2021-02-23 18:31 | HPEPDOC ---
[facility] Medical History & Physical Date of Admission Feb 23, 2021 Date of Service: Feb 23, 2021 History and Physical CHIEF COMPLAINT: "I have had no bowel movement for 2 weeks." HISTORY OF PRESENT ILLNESS: 75-year-old female with history of spinal stenosis cervical stenosis status post dorsal column stimulator follows with Dr. Mcnair [facility] in [place] [phone], had received epidural injections 2 weeks ago and had been complaining of no bowel movement since then she denies any fever chills nausea vomiting she is noted slight abdominal distention decreased appetite without pain, but no vomiting she denies any urine retention saddle anesthesia falls. She has chronic radicular pain to her feet and has had worsening neuropathy with plans for nerve conduction studies and electromyelogram as outpatient to be scheduled in 1 to 2 weeks. Patient ambulates without assistance of a cane or walker. Prior to her epidural injections, patient had complaints of weakness going from sitting to standing position especially when she works in her garden and tries to get up. Her anesthesiologist had referred her to a neurologist to do nerve conduction studies as outpatient. She has been diagnosed in the past with gastroparesis, but currently denies any nausea vomiting. She denies any joint pains, but admits to having some muscle pains which is chronic. She denies any fever chills weight gain weight loss changes in sleep habits insomnia hypersomnia sore throat ear pain ear discharge blurred vision changes in vision diplopia chest pain pressure tightness lightheadedness dizziness abdominal pain dysuria urgency frequency flank pain polyuria polyphagia anxiety skin rash unusual masses or lumps on the skin depression.In the emergency room she was found to have nonspecific colitis and CT abdomen and pelvis she was afebrile hemodynamically stable with systolic blood pressure of 130 to 150 mmHg not tachycardic or tachypneic. Hospitalist was asked to admit the patient for colitis and constipation. PAST MEDICAL HISTORY: Spinal stenosis in the cervical thoracic and lumbar spine status post dorsal column stimulator in 2013, receives epidural injections at [facility] in [place], asthma hand eczema, migraines giant cell arteritis on Actemra gastroparesis PAST SURGICAL HISTORY: Dorsal column stimulator 2013 tonsillectomy x2 hysterectomy carpal tunnel release bilaterally left shoulder surgery to remove bone spurs left foot surgery ALLERGIES: Codeine Elavil CT contrast Maxalt Savella Seroquel cyclobenzaprine acetaminophen SOCIAL HISTORY: Denies recreational drug use tobacco use social alcohol use retired FAMILY HISTORY: Father hypertension CAD mother Alzheimer's dementia ALLERGIES: Please see below. REVIEW OF SYSTEMS: 10 point review of systems negative aside from positive findings in HPI HOME MEDICATIONS: Please see below. PHYSICAL EXAMINATION: VITAL SIGNS: See below GENERAL APPEARANCE: No distress awake alert oriented answering questions ap propriately without conversational dyspnea or cyanosis HEENT: No JVD thyromegaly cervical lymphadenopathy moist mucous membranes no tracheal deviation carotid bruits or stridor CARDIOVASCULAR: S1-S2 regular rate rhythm no murmurs rubs or gallops nondisplaced point of maximal impulse no S3 LUNGS: Clear to auscultation wheezing rales or rhonchi inspiratory expiratory ratio 1:2 no adventitious breath sounds air entry is equal bilaterally no scoliosis or kyphosis ABDOMEN: Positive bowel sounds soft slightly distended slightly tender left lower quadrant no rebound guarding or hepatosplenomegaly. MUSCULOSKELETAL: No point tenderness in the cervical thoracic or lumbar region bilateral wrist joints elbows bilateral knees have no joint effusions tenderness erythema. EXTREMITIES: No cyanosis clubbing or pitting edema LABORATORY DATA: See below. IMAGING: CT abdomen and pelvis 02/23/2021: FINDINGS: Heart and lung bases: The lung bases are clear. There are no pleural effusions. The heart size is normal. There is no pericardial effusion. Liver: There is a 14 mm cyst in the posterior segment of the right hepatic lobe. Gallbladder: Normal. Spleen: Normal. Pancreas: Normal. Adrenal glands: Normal. Kidneys/bladder: The kidneys enhance normally. Urinary bladder has a normal unenhanced appearance. Pelvic structures: The uterus is surgically absent. The ovaries are not identified. There is no free fluid the pelvis. There is no pelvic or inguinal lymphadenopathy. GI tract: There is diffuse enhancement of the mucosa of the colon and there are air-fluid levels throughout the colon. In the distal colon there is loose stool. The colon is not abnormally dilated. The appendix is not demonstrated. The remainder of the gastrointestinal tract appears unremarkable. Abdominal wall and mesentery: There is no mesenteric or retroperitoneal lymphadenopathy. There are no abdominal wall defects. There is a intrathecal stimulator with device in the left buttock. Abdominal aorta and vascular structures: There is calcific vascular disease of the abdominal aorta. The inferior vena cava and portal venous system are normal. Bony structures: There is degenerative disc disease, L3-4 and L4-5. The SI joints and hips are normal. IMPRESSION: 1. Diffuse enhancement of the mucosa of the colon. Air-fluid levels throughout the colon. The findings are consistent with a nonspecific colitis. 2. Other findings as noted. Incidental Findings: Nonspecific colitis The critical information above was relayed directly by me by telephone to YONAS ALVARADO on 02/23/2021 at 4:06 pm with readback verification. MICROBIOLOGY: Please see below. ASSESSMENT: 75-year-old female with history of spinal stenosis cervical stenosis status post dorsal column stimulator follows with Dr. Mcnair [facility] in [place] [phone], had received epidural injections 2 weeks ago and had been complaining of no bowel movement since then she denies any fever chills nausea vomiting she is noted slight abdominal distention decreased appetite without pain, but no vomiting she denies any urine retention saddle anesthesia falls. She has chronic radicular pain to her feet and has had worsening neuropathy with plans for nerve conduction studies and electromyelogram as outpatient to be sche duled in 1 to 2 weeks. Patient ambulates without assistance of a cane or walker. Prior to her epidural injections, patient had complaints of weakness going from sitting to standing position especially when she works in her garden and tries to get up. Her anesthesiologist had referred her to a neurologist to do nerve conduction studies as outpatient. She has been diagnosed in the past with gastroparesis, but currently denies any nausea vomiting. She denies any joint pains, but admits to having some muscle pains which is chronic. She denies any fever chills weight gain weight loss changes in sleep habits insomnia hypersomnia sore throat ear pain ear discharge blurred vision changes in vision diplopia chest pain pressure tightness lightheadedness dizziness abdominal pain dysuria urgency frequency flank pain polyuria polyphagia anxiety skin rash unusual masses or lumps on the skin depr ession.In the emergency room she was found to have nonspecific colitis and CT abdomen and pelvis she was afebrile hemodynamically stable with systolic blood pressure of 130 to 150 mmHg not tachycardic or tachypneic. Hospitalist was asked to admit the patient for colitis and constipation. Nonspecific colitis -N.p.o. IV fluids antiemetics IV pain medications IV Cipro Flagyl day #1 to complete a 7-day course -Monitor ESR CRP lactic acid -Check IBD serology -IV PPI twice daily Constipation -Bowel regimen Cervical thoracic lumbar spinal stenosis -Status post dorsal column stimulator -No signs of myelopathy, good rectal tone -Obtain records from Dr. Mcnair in [facility] spine -CT lumbar spine reviewed History of giant cell arteritis History of asthma -Not in acute exacerbation History of migraines Asymptomatic Diet: N.p.o. IV fluids CODE STATUS: Full code Disposition: 2 to 3 days pending clinical improvement Vital Signs Vital Signs Date Time Temp Pulse Resp B/P (MAP) Pulse Ox O2 Delivery O2 Flow Rate FiO2 02/23/21 15:47 98.3 69 16 131/62 (85) 98 Room Air Laboratory Data Labs 24H Laboratory Tests 2 02/23/21 12:55: Immature Granulocyte % (Auto) 1.4, Neutrophils (%) (Auto) 61.5, Lymphocytes (%) (Auto) 25.4, Monocytes (%) (Auto) 10.3H, Eosinophils (%) (Auto) 1.0, Basophils (%) (Auto) 0.4, Neutrophils # (Auto) 4.4, Lymphocytes # (Auto) 1.8, Monocytes # (Auto) 0.7, Eosinophils # (Auto) 0.1, Basophils # (Auto) 0.0, Nucleated Red Blood Cells % (auto) 0.0, Urine Color COLORLESS, Urine Appearance CLEAR, Urine pH 5.0, Urine Specific [place] 1.002, Urine Protein NEGATIVE, Urine Glucose (UA) NEGATIVE, Urine Ketones NEGATIVE, Urine Blood NEGATIVE, Urine Nitrite NEGATIVE, Urine Bilirubin NEGATIVE, Urine Urobilinogen 0.2, Urine Leukocyte Esterase NEGATIVE, Urine WBC (Auto) 1, Urine RBC (Auto) 0, Urine Hyaline Casts (Auto) 0, Urine Bacteria (Auto) NEGATIVE, Urine Squamous Epithelial Cells 0, Urine Sperm (Auto) , Total Bilirubin 0.2, Direct Bilirubin < 0.1, Aspartate Amino Transf (AST/SGOT) 23, Alanine Aminotransferase (ALT/SGPT) 37, Alkaline Phosphatase 40L, Total Protein 5.7L, Albumin 3.2, Albumin/Globulin Ratio 1.3, Lipase 162 02/23/21 13:07: POC Glucose (Misc Panel) 90, POC Sodium (Misc Panel) 135L, POC Potassium (Misc Panel) 3.6, POC Chloride (Misc Panel) 103, POC Total CO2 (Misc Panel) 23.0, POC Blood Urea Nitrogen (Misc Panel 7L, POC Ionized Calcium (Misc Panel) 5.3, POC Creatinine (Misc Panel) 0.8, POC Hematocrit (Misc Panel) 39.0 02/23/21 17:58: 02/23/21 18:00: CBC/BMP Laboratory Tests 02/23/21 12:55 Microbiology Microbiology 02/23/21 Respiratory Virus Panel (PCR) ([facility]) - Final, Complete Home Medications Scheduled Calcium Citrate/Vitamin D3 (Citracal + D Maximum Caplet) 1 Tab Tab, 1 TAB PO BID Cholecalciferol (Vitamin D3) 1,000 Unit Cap, 2,000 UNIT PO DAILY Clotrimazole (Clotrimazole) 10 Mg Troc, 10 MG MT 5XD Diphenhydramine HCl (Benadryl) 25 Mg Capsule, 50 MG PO ASDIRECTED Gabapentin (Gabapentin) 600 Mg Tab, 600 MG PO TID Levothyroxine Sodium (Levothyroxine Sodium) 50 Mcg Tab, 50 MCG PO DAILY Montelukast Sodium (Montelukast Sodium) 10 Mg Tab, 10 MG PO QHS Rosuvastatin Calcium (Rosuvastatin Calcium) 5 Mg Tab, 5 MG PO QHS Temazepam (Temazepam) 7.5 Mg Cap, 15 MG PO QHS Scheduled PRN Eletriptan Hydrobromide (Relpax) 40 Mg Tab, 1 TAB PO BID PRN for MIGRAINE Metronidazole (Metronidazole 0.75% Crm) 1 Dose/45 Gm Cream, 1 DOSE TOP PRN PRN for ROSACEA Morphine Sulfate (Morphine Sulfate) 15 Mg Tab, 7.5 MG PO BID PRN for PAIN Miscellaneous Medications Denosumab Injection (Prolia) 60 Mg/1 Ml Syringe [actpen] Allergies Coded Allergies: Contrast Media (Verified Allergy, Intermediate, hives, 03/04/17) codeine (Verified Allergy, Mild, RASH, 03/29/20) acetaminophen (Verified Adverse Reaction, Intermediate, MIGRAINES, 03/29/20) amitriptyline (Verified Adverse Reaction, Intermediate, CARRIER DRIVER SYMPTOME/BLADDER ISSUES, 03/29/20) tizanidine (Verified Adverse Reaction, Intermediate, INTENSE PAIN, 03/29/20) NSAIDS (Non-Steroidal Anti-Inflamma (Verified Adverse Reaction, Mild, H EADACHE, 03/29/20) carisoprodol (Verified Adverse Reaction, Mild, NAUSEA, 03/29/20) cyclobenzaprine (Verified Adverse Reaction, Mild, LETHARGY, 03/29/20) metaxalone (Verified Adverse Reaction, Mild, HEADACHE, 03/29/20) methocarbamol (Verified Adverse Reaction, Mild, HEADACHE, 03/29/20) milnacipran (Verified Adverse Reaction, Mild, LETHARGY, 03/29/20) oxycodone (Verified Adverse Reaction, Mild, LETHARGY, 03/29/20) quetiapine (Verified Adverse Reaction, Mild, BRUISING, 03/29/20) rizatriptan (Verified Adverse Reaction, Mild, LETHARGY, 03/29/20) A-FIB/CHADSVASC A-FIB History Current/History of A-Fib/PAF?: No Current PO Anticoag Therapy: No Age/Risk Factor Scoring CHADSVASC: CHADSVASC Response (Comments) Value Age Risk Factor Age 65-74 years old 1 Gender Risk Factor Female 1 Hx of CHF No 0 Hx of Vascular Disease No 0 Total 2 Treatment Treatment ordered: NONE ORLANDO ESCALERA MD Feb 23, 2021 18:23
[2021-02-23] MEDS ORDERED: GABAPENTIN 300 MG CAP PO ONE (18:35)
[2021-02-23] MEDS: METOCLOPRAMIDE INJ 10MG/2ML VIAL (J2765 PER 1) IV SCH ×2 (18:44→23:39)
[2021-02-23] MEDS: CIPROFLOXACIN 400 MG in IV 1 EA IV SCH (19:14)
--- NOTE | 2021-02-23 19:18 | REPVR ---
PROCEDURE INFORMATION: Exam: CT Lumbar Spine Without Contrast Exam date and time: 02/23/2021 5:42 PM Age: 75 years old Clinical indication: Low back pain TECHNIQUE: Imaging protocol: Computed tomography images of the lumbar spine without contrast. Radiation optimization: All CT scans at this facility use at least one of these dose optimization techniques: automated exposure control; mA and/or kV adjustment per patient size (includes targeted exams where dose is matched to clinical indication); or iterative reconstruction. COMPARISON: CT Spine, lumbar w/o contrast 02/10/2019 2:01 PM No segmental lumbar vertebral malalignment. Vertebral body height and morphology is maintained. No acute fracture or destructive process. Intervertebral disc height is maintained for age aside from mild disc height loss with endplate osteophytes L4-L5 and minimal changes at L2-L3. Minimal progression at L4-L5 since the prior CT from 2019. Disc bulges in the lower 4 lumbar levels appear similar to the CT myelogram study from 2019. Hypertrophic facet arthropathy at L5-S1 is unchanged No dilatation of the imaged distal abdominal aorta. No significant soft tissue abnormality of the imaged retroperitoneum. IMPRESSION: No fracture or other acute abnormality involving the lumbar spine. Degenerative disc change at L4-L5, degenerative facet arthropathy at L5-S1 and mild degenerative disc changes at L2-L3, and mild disc bulges in the lower 4 lumbar levels, with only minor progression of the L2-L3 disc disease since 2019 Electronically signed by: Benny Stack On 02/23/2021 19:17:44 PM
[2021-02-23 19:45] VITALS: BP 130/59
[2021-02-23] MEDS: metroNIDAZOLE 500 MG in IV 1 EA IV SCH (20:32)
[2021-02-23] MEDS: SENOKOT S TAB PO SCH (20:32)
[2021-02-23] MEDS: D5W/0.45% SODIUM CHLORIDE 1,000 ML IV SCH (20:33)
[2021-02-23] MEDS ORDERED: TEMAZEPAM 15 MG CAP PO ONE (22:55)
[2021-02-24] MEDS: metroNIDAZOLE 500 MG in IV 1 EA IV SCH ×3 (04:29→20:52)
[2021-02-24] MEDS: METOCLOPRAMIDE INJ 10MG/2ML VIAL (J2765 PER 1) IV SCH ×4 (05:38→23:47)
[2021-02-24] MEDS: CIPROFLOXACIN 400 MG in IV 1 EA IV SCH ×2 (05:39→18:28)
[2021-02-24] MEDS: D5W/0.45% SODIUM CHLORIDE 1,000 ML IV SCH ×2 (05:40→22:42)
[2021-02-24 06:00] VITALS: BP 100/58
[2021-02-24 06:39] LABS: BASO % 0.1 % (0.0-1.0); HEMATOCRIT 37.9 % (36.0-47.0); HEMOGLOBIN 12.4 g/dl (12.0-15.5); LYMPH # 0.9 10^3/uL (1.5-5.0); MEAN CORPUSCULAR HEMOGLOBIN 30.9 pg (27.0-33.0); MEAN CORPUSCULAR HGB CONC 32.7 g/dl (32.0-36.5); MEAN CORPUSCULAR VOLUME 94.5 fl (80.0-96.0); MONO # 0.5 10^3/uL (0.0-0.8); MONO % 5.3 % (2.0-8.0); NEUTROPHILS # 7.4 10^3/uL (1.5-8.5); NEUTROPHILS % 82.8 % (36.0-66.0); PLATELET COUNT, AUTOMATED 141 10^3/uL (150-450); RED BLOOD COUNT 4.01 10^6/uL (4.00-5.40); WHITE BLOOD COUNT 8.9 10^3/uL (4.0-10.0)
[2021-02-24 07:00] LABS: BLOOD UREA NITROGEN 8 MG/DL (7-18); CALCIUM LEVEL 7.5 MG/DL (8.8-10.2); CARBON DIOXIDE LEVEL 28 MEQ/L (21-32); CHLORIDE LEVEL 110 MEQ/L (98-107); CREATININE FOR GFR 0.79 MG/DL (0.55-1.30); GLOMERULAR FILTRATION RATE > 60.0 (>39); GLUCOSE, FASTING 120 MG/DL (70-100); POTASSIUM SERUM 3.8 MEQ/L (3.5-5.1); SODIUM LEVEL 143 MEQ/L (136-145)
[2021-02-24] MEDS: SENOKOT S TAB PO SCH ×2 (08:24→20:51)
[2021-02-24] MEDS ORDERED: MAGNESIUM CITRATE 300 ML BTL PO ONE (09:00)
[2021-02-24 10:00] VITALS: BP 119/56
[2021-02-24] MEDS: GABAPENTIN 300 MG CAP PO SCH ×3 (12:55→20:51)
[2021-02-24] MEDS: ROSUVASTATIN 10 MG TAB (CRESTOR) PO SCH (12:55)
[2021-02-24] MEDS: LEVOTHYROXINE 50MCG TABLET (0.05MG) PO SCH (12:55)
--- NOTE | 2021-02-24 13:37 | IPNPDOC ---
Date Seen The patient was seen on 02/24/21. Progress Note SUBJECTIVE: Patient denies nausea vomiting she still complains of left upper quadrant abdominal discomfort described as cramping better when she lays down still and does not move worse when she stands up and walks around Rated at 5 out of 10 without fever chills overnight. She denies any back pain dysuria urgency frequency flank pain denies any myelopathy. PHYSICAL EXAMINATION: VITAL SIGNS: See below GENERAL APPEARANCE: No distress cyanosis or pallor no use of respiratory accessory muscles HEENT: No JVD thyromegaly cervical lymphadenopathy moist mucous membranes no tracheal deviation carotid bruits or stridor CARDIOVASCULAR: S1-S2 regular rate rhythm no murmurs rubs or gallops nondispl aced point of maximal impulse no S3 LUNGS: Clear to auscultation wheezing rales or rhonchi inspiratory expiratory ratio 1:2 no adventitious breath sounds air entry is equal bilaterally no scoliosis or kyphosis ABDOMEN: Positive bowel sounds soft tender left upper quadrant no rebound guarding or hepatosplenomegaly. MUSCULOSKELETAL: No point tenderness in the cervical thoracic or lumbar region bilateral wrist joints elbows bilateral knees have no joint effusions tenderness erythema. EXTREMITIES: No cyanosis clubbing or pitting edema LABORATORY DATA: See below. IMAGING: CT abdomen and pelvis 02/23/2021: FINDINGS: Heart and lung bases: The lung bases are clear. There are no pleural effusions. The heart size is normal. There is no pericardial effusion. Liver: There is a 14 mm cyst in the posterior segment of the right hepatic lobe. Gallbladder: Normal. Spleen: Normal. Pancreas: Normal. Adrenal glands: Normal. Kidneys/bladder: The kidneys enhance normally. Urinary bladder has a normal unenhanced appearance. Pelvic structures: The uterus is surgically absent. The ovaries are not identified. There is no free fluid the pelvis. There is no pelvic or inguinal lymphadenopathy. GI tract: There is diffuse enhancement of the mucosa of the colon and there are air-fluid levels throughout the colon. In the distal colon there is loose stool. The colon is not abnormally dilated. The appendix is not demonstrated. The remainder of the gastrointestinal tract appears unremarkable. Abdominal wall and mesentery: There is no mesenteric or retroperitoneal lymphadenopathy. There are no abdominal wall defects. There is a intrathecal stimulator with device in the left buttock. Abdominal aorta and vascular structures: There is calcific vascular disease of the abdominal aorta. The inferior vena cava and portal venous system are normal. Bony structures: There is degenerative disc disease, L3-4 and L4-5. The SI joints and hips are normal. IMPRESSION: 1. Diffuse enhancement of the mucosa of the colon. Air-fluid levels throughout the colon. The findings are consistent with a nonspecific colitis. 2. Other findings as noted. Incidental Findings: Nonspecific colitis The critical information above was relayed directly by me by telephone to YONAS ALVARADO on 02/23/2021 at 4:06 pm with readback verification. MICROBIOLOGY: Please see below. ASSESSMENT: 75-year-old female with history of spinal stenosis cervical stenosis status post dorsal column stimulator follows with Dr. Mcnair [facility] in [place] [phone], had received epidural injections 2 weeks ago and had been complaining of no bowel movement since then she denies any fever chills nausea vomiting she is noted slight abdominal distention decreased appetite without pain, but no vomiting she denies any urine retention saddle anesthesia falls. She has chronic radicular pain to her feet and has had worsening neuropathy with plans for nerve conduction studies and electromyelogram as outpatient to be scheduled in 1 to 2 weeks. Patient ambulates without assistance of a cane or walker. Prior to her epidural injections, patient had complaints of weakness going from sitting to standing position especially when she works in her garden and tries to get up. Her anesthesiologist had referred her to a neurologist to do nerve conduction studies as outpatient. She has been diagnosed in the past with gastroparesis, but currently denies any nausea vomiting. She denies any joint pains, but admits to having some muscle pains which is chronic. She denies any fever chills weight gain weight loss changes in sleep habits insomnia hypersomnia sore throat ear pain ear discharge blurred vision changes in vision diplopia chest pain pressure tightness lightheadedness dizziness abdominal pain dysuria urgency frequency flank pain polyuria polyphagia anxiety skin rash unusual masses or lumps on the skin depression.In the emergency room she was found to have nonspecific colitis and CT abdomen and pelvis she was afebrile hemodynamically stable with systolic blood pressure of 130 to 150 mmHg not tachycardic or tachypneic. Hospitalist was asked to admit the patient for colitis and constipation. Nonspecific colitis -N.p.o. for 24 hours after hospital admission -Trial of IV fluids antiemetics IV pain medications overnight -IV Cipro Flagyl day #2 to complete a 7-day course -Advanced diet from clears to full liquids and as tolerated to solid diet for dinner -IV PPI twice daily Constipation -Bowel regimen -No response to Senokot and milk of mag yesterday we will try mag citrate today Cervical thoracic lumbar spinal stenosis -Status post dorsal column stimulator -No signs of myelopathy, good rectal tone -Obtain records from Dr. Mcnair in [facility] spine -CT lumbar spine reviewed History of giant cell arteritis History of asthma -Not in acute exacerbation History of migraines Asymptomatic Diet: Advance diet DC IV fluids if tolerating her diet CODE STATUS: Full code Disposition: If tolerating diet has a bowel movement may discharge in the morning with oral antibiotics VS, I&O, 24H, Fishbone Vital Signs/I&O Vital Signs Date Time Temp Pulse Resp B/P (MAP) Pulse Ox O2 Delivery O2 Flow Rate FiO2 02/24/21 10:00 97.7 74 16 119/56 (77) 99 Room Air I&O- Last 24 Hours up to 6 AM 02/24/21 05:59 Intake Total 2625 ml Output Total 1200 ml Balance 1425 ml Laboratory Data 24H LABS Laboratory Tests 2 02/23/21 17:58: Lactic Acid Level 1.0 02/23/21 18:00: Erythrocyte Sedimentation Rate 2, C-Reactive Protein, Quantitative < 0.30, Procalcitonin <0.05 02/24/21 05:54: Immature Granulocyte % (Auto) 1.8, Neutrophils (%) (Auto) 82.8H, Lymphocytes (%) (Auto) 10.0L, Monocytes (%) (Auto) 5.3, Eosinophils (%) (Auto) 0.0, Basophils (%) (Auto) 0.1, Neutrophils # (Auto) 7.4, Lymphocytes # (Auto) 0.9L, Monocytes # (Auto) 0.5, Eosinophils # (Auto) 0.0, Basophils # (Auto) 0.0, Nucleated Red Blood Cells % (auto) 0.0, Anion Gap 5L, Glomerular Filtration Rate > 60.0, Calcium Level 7.5L CBC/BMP Laboratory Tests 02/24/21 05:54 Microbiology Microbiology 02/23/21 Respiratory Virus Panel (PCR) ([facility]) - Final, Complete JW,ORLANDO C. MD Feb 24, 2021 13:37
[2021-02-24 14:00] VITALS: BP 122/61
[2021-02-24 21:00] VITALS: BP 140/77
[2021-02-24] MEDS ORDERED: TEMAZEPAM 15 MG CAP PO SCH (21:00)
[2021-02-24] MEDS ORDERED: MONTELUKAST 10 MG TAB PO SCH (21:00)
[2021-02-25] MEDS: metroNIDAZOLE 500 MG in IV 1 EA IV SCH (04:06)
[2021-02-25] MEDS: LEVOTHYROXINE 50MCG TABLET (0.05MG) PO SCH (05:56)
[2021-02-25] MEDS: CIPROFLOXACIN 400 MG in IV 1 EA IV SCH (05:56)
[2021-02-25] MEDS: METOCLOPRAMIDE INJ 10MG/2ML VIAL (J2765 PER 1) IV SCH (05:56)
[2021-02-25 06:00] VITALS: BP 135/78
[2021-02-25 06:51] LABS: BASO % 0.3 % (0.0-1.0); EOS # 0.1 10^3/uL (0.0-0.5); EOS % 1.1 % (0.0-3.0); HEMATOCRIT 41.1 % (36.0-47.0); HEMOGLOBIN 13.3 g/dl (12.0-15.5); LYMPH # 2.2 10^3/uL (1.5-5.0); LYMPH % 28.7 % (24.0-44.0); MEAN CORPUSCULAR HEMOGLOBIN 30.9 pg (27.0-33.0); MEAN CORPUSCULAR HGB CONC 32.4 g/dl (32.0-36.5); MEAN CORPUSCULAR VOLUME 95.4 fl (80.0-96.0); MONO # 0.6 10^3/uL (0.0-0.8); MONO % 8.5 % (2.0-8.0); NEUTROPHILS # 4.5 10^3/uL (1.5-8.5); NEUTROPHILS % 60.6 % (36.0-66.0); PLATELET COUNT, AUTOMATED 141 10^3/uL (150-450); RED BLOOD COUNT 4.31 10^6/uL (4.00-5.40); WHITE BLOOD COUNT 7.5 10^3/uL (4.0-10.0)
[2021-02-25 07:21] LABS: BLOOD UREA NITROGEN 8 MG/DL (7-18); CALCIUM LEVEL 7.8 MG/DL (8.8-10.2); CARBON DIOXIDE LEVEL 29 MEQ/L (21-32); CHLORIDE LEVEL 112 MEQ/L (98-107); CREATININE FOR GFR 0.86 MG/DL (0.55-1.30); GLOMERULAR FILTRATION RATE > 60.0 (>39); GLUCOSE, FASTING 96 MG/DL (70-100); POTASSIUM SERUM 3.5 MEQ/L (3.5-5.1); SODIUM LEVEL 145 MEQ/L (136-145)
[2021-02-25] MEDS: SENOKOT S TAB PO SCH (09:00)
--- NOTE | 2021-02-25 09:13 | REP ---
INDICATION: follow up for abd ct scan-air fluid levels in colon. COMPARISON: Radiographs 12/15/2018, CT 02/23/2021. TECHNIQUE: AP supine image abdomen and pelvis. FINDINGS: Mild air is seen throughout the colon. There is no bowel dilatation and no evidence of obstruction. There are mild degenerative changes of the spine. IMPRESSION: No evidence of obstruction. Mild air scattered throughout the colon. <Electronically signed by Fredy Preston > 02/25/21 0916
[2021-02-25] MEDS: ROSUVASTATIN 10 MG TAB (CRESTOR) PO SCH (09:34)
[2021-02-25] MEDS: GABAPENTIN 300 MG CAP PO SCH (09:35)
[2021-02-25] MEDS ORDERED: CIPR-249 PO (10:33)
[2021-02-25] MEDS ORDERED: FLAG500T PO (10:33)
[2021-02-25] MEDS ORDERED: SENN8.6T28 PO (22:40)
[2021-02-25] MEDS ORDERED: MIRA3350 PO (22:40)
--- NOTE | 2021-02-25 22:41 | DS.PDOC ---
Discharge Summary General Date of Admission Feb 23, 2021 at 17:02 Date of Discharge 02/25/21 Discharge Summary PROCEDURES PERFORMED DURING STAY: [None]. DISCHARGE DIAGNOSES: Severe Constipation medication related (Cyclobenzaprine) Non specific colitis /Stercoral colitis SECONDARY DIAGNOSIS: Spinal stenosis in the cervical thoracic and lumbar spine status post dorsal column stimulator in 2013, receives epidural injections at [facility] in [place], Radiculopathy in botht eh lower extremitis Neuropathy asthma hand eczema, migraines giant cell arteritis on Actemra gastroparesis Chronic constipation COMPLICATIONS/CHIEF COMPLAINT: Colitis. HOSPITAL COURSE: 75-year-old female with history of Gastroparesis, Giant Cell arteritis, chronic muscle pains, spinal stenosis, cervical stenosis status post dorsal column stimulator follows with Dr. Mcnair [facility] in [place] [phone], had received epidural injections 2 weeks prior to admission and presented with ED with complaints of no bowel movement for 2 weeks, abdominal distension, mild abdominal pain and poor appetite without any vomiting. She has chronic radicular pain to her feet and has had worsening neuropathy with plans for nerve conduction studies and electromyelogram as outpatient to be scheduled in 1 to 2 weeks. In the emergency room she was found to have nonspecific colitis in CT abdomen and pelvis with air fluid levels. She was admitted for non specific colitis and severe constipation. She was started on aggressive bowel regimen with good response to Magcitrate with several large bowel movements. She was also empirically treated with cipro and flagyl for the colitis. She responded well to treatment and all her abdominal symptoms have now resolved. She is being discharged home in a stable condition. DISCHARGE MEDICATIONS: Please see below. ALLERGIES: Please see below. PHYSICAL EXAMINATION ON DISCHARGE: VITAL SIGNS: Please see below. GENERAL APPEARANCE: No distress cyanosis or pallor no use of respiratory accessory muscles HEENT: moist mucous membranes , anicteric eyes. NECK: No JVD, thyromegaly or cervical lymphadenopathy CARDIOVASCULAR: S1-S2 regular rate rhythm no murmurs rubs or gallops LUNGS: Clear to auscultation, No wheezing rales or rhonchi ABDOMEN: Normal bowel sounds, soft, non tender EXTREMITIES: No cyanosis clubbing or pitting edema LABORATORY DATA: Please see below. IMAGING: CT abdomen and pelvis 02/23/2021: FINDINGS: Heart and lung bases: The lung bases are clear. There are no pleural effusions. The heart size is normal. There is no pericardial effusion. Liver: There is a 14 mm cyst in the posterior segment of the right hepatic lobe. Gallbladder: Normal. Spleen: Normal. Pancreas: Normal. Adrenal glands: Normal. Kidneys/bladder: The kidneys enhance normally. Urinary bladder has a normal unenhanced appearance. Pelvic structures: The uterus is surgically absent. The ovaries are not identified. There is no free fluid the pelvis. There is no pelvic or inguinal lymphadenopathy. GI tract: There is diffuse enhancement of the mucosa of the colon and there are air-fluid levels throughout the colon. In the distal colon there is loose stool. The colon is not abnormally dilated. The appendix is not demonstrated. The remainder of the gastrointestinal tract appears unremarkable. Abdominal wall and mesentery: There is no mesenteric or retroperitoneal lymphadenopathy. There are no abdominal wall defects. There is a intrathecal stimulator with device in the left buttock. Abdominal aorta and vascular structures: There is calcific vascular disease of the abdominal aorta. The inferior vena cava and portal venous system are normal. Bony structures: There is degenerative disc disease, L3-4 and L4-5. The SI joints and hips are normal. IMPRESSION: 1. Diffuse enhancement of the mucosa of the colon. Air-fluid levels throughout the colon. The findings are consistent with a nonspecific colitis. 2. Other findings as noted. Incidental Findings: Nonspecific colitis ACTIVITY: [As tolerated]. DIET: Low residue DISPOSITION: 01 Home, Self-Care. DISCHARGE INSTRUCTIONS: PMD in 1 week DISCHARGE CONDITION: [Stable]. TIME SPENT ON DISCHARGE: 35 minutes. Vital Signs/I&Os Vital Signs Date Time Temp Pulse Resp B/P (MAP) Pulse Ox O2 Delivery O2 Flow Rate FiO2 02/25/21 06:00 97.3 86 17 135/78 (97) 100 Nasal Cannula I&O- Last 24 Hours up to 6 AM 02/25/21 07:00 Intake Total 960 ml Output Total 1000 ml Balance -40 ml Laboratory Data Labs 24H Laboratory Tests 2 02/25/21 06:18: Immature Granulocyte % (Auto) 0.8, Neutrophils (%) (Auto) 60.6, Lymphocytes (%) (Auto) 28.7, Monocytes (%) (Auto) 8.5H, Eosinophils (%) (Auto) 1.1, Basophils (%) (Auto) 0.3, Neutrophils # (Auto) 4.5, Lymphocytes # (Auto) 2.2, Monocytes # (Auto) 0.6, Eosinophils # (Auto) 0.1, Basophils # (Auto) 0.0, Nucleated Red B lood Cells % (auto) 0.0, Anion Gap 4L, Glomerular Filtration Rate > 60.0, Calcium Level 7.8L CBC/BMP Laboratory Tests 02/25/21 06:18 Microbiology Microbiology 02/23/21 Respiratory Virus Panel (PCR) ([facility]ENCIO) - Final, Complete Discharge Medications Scheduled Ciprofloxacin HCl (Cipro) 500 Mg Tablet, 1 TAB PO BID Fluconazole (Fluconazole) 100 Mg Tablet, 100 MG PO QHS, (Reported) Gabapentin (Gabapentin) 600 Mg Tab, 600 MG PO TID, (Reported) Levothyroxine Sodium (Levothyroxine Sodium) 50 Mcg Tab, 50 MCG PO DAILY, (Reported) Metronidazole (Flagyl) 500 Mg Tablet, 500 MG PO Q8H Montelukast Sodium (Montelukast Sodium) 10 Mg Tab, 10 MG PO QHS, (Reported) Rosuvastatin Calcium (Rosuvastatin Calcium) 5 Mg Tab, 5 MG PO DAILY, (Reported) Temazepam (Temazepam) 15 Mg Capsule, 15 MG PO QHS, (Reported) Tocilizumab (Actemra Actpen) 162 Mg/0.9 Ml Pen.injctr, 162 MG SC 1XWK, (Reported) FRIDAYS Scheduled PRN Diphenhydramine HCl (Benadryl) 25 Mg Capsule, 50 MG PO Q8H PRN for ALLERGY SYMPTOMS, (Reported) Eletriptan Hydrobromide (Relpax) 40 Mg Tab, 40 MG PO BID PRN for MIGRAINE, (Reported) Propylene Glycol/Peg 400/Pf (Systane 0.3-0.4% Eye Drop) 1 Each Droperette, 1 D ROP OS QID PRN for DRY EYES, (Reported) Miscellaneous Medications Denosumab Injection (Prolia) 60 Mg/1 Ml Syringe, (Reported) Allergies Coded Allergies: Contrast Media (Verified Allergy, Intermediate, hives, 03/04/17) codeine (Verified Allergy, Mild, RASH, 03/29/20) acetaminophen (Verified Adverse Reaction, Intermediate, MIGRAINES, 03/29/20) amitriptyline (Verified Adverse Reaction, Intermediate, GENETICS PHYSICIAN SYMPTOME/BLADDER ISSUES, 03/29/20) tizanidine (Verified Adverse Reaction, Intermediate, INTENSE PAIN, 03/29/20) NSAIDS (Non-Steroidal Anti-Inflamma (Verified Adverse Reaction, Mild, HEADACHE, 03/29/20) carisoprodol (Verified Adverse Reaction, Mild, NAUSEA, 03/29/20) cyclobenzaprine (Verified Adverse Reaction, Mild, LETHARGY, 03/29/20) metaxalone (Verified Adverse Reaction, Mild, HEADACHE, 03/29/20) methocarbamol (Verified Adverse Reaction, Mild, HEADACHE, 03/29/20) milnacipran (Verified Adverse Reaction, Mild, LETHARGY, 03/29/20) oxycodone (Verified Adverse Reaction, Mild, LETHARGY, 03/29/20) quetiapine (Verified Adverse Reaction, Mild, BRUISING, 03/29/20) rizatriptan (Verified Adverse Reaction, Mild, LETHARGY, 03/29/20) Zena Nunes MD Feb 25, 2021 22:41
[2021-02-27 16:13] LABS: Chitobioside Carbohydrat (ACCA 13 units (0-90); Laminaribioside Carbohyd (ALCA 0 units (0-60); Mannobioside Carbohydrat (AMCA 10 units (0-100); Saccharomyces cerevisiae IgG A 10 units (0-50)
== END 2021-02-25 12:40 | disposition home or self-care (01) | DRG 392 ==
LOC: M ED 10:45 → M ED INP 17:02 → M MSPAV 19:35
PROVIDERS: ADMIT General Practice; ATTEND Internal Medicine Nephrology
DX: K59.03 Drug induced constipation (principal); M48.061 Spinal stenosis, lumbar region without neurogenic claudication; M48.02 Spinal stenosis, cervical region; K52.9 Noninfective gastroenteritis and colitis, unspecified; M48.04 Spinal stenosis, thoracic region; L30.9 Dermatitis, unspecified; K31.84 Gastroparesis; G62.9 Polyneuropathy, unspecified; M31.6 Other giant cell arteritis; J45.909 Unspecified asthma, uncomplicated; T48.1X5A Adverse effect of skeletal muscle relaxants [neuromuscular blocking agents], initial encounter; Z96.89 Presence of other specified functional implants; Z79.899 Other long term (current) drug therapy; Z88.5 Allergy status to narcotic agent; Z88.6 Allergy status to analgesic agent; Z88.8 Allergy status to other drugs, medicaments and biological substances; Z91.041 Radiographic dye allergy status

== ENCOUNTER → 2021-03-15 | Outpatient (REF) | payer MEDICARE ==
[~2021-03-15] MED LIST changes: +ACTE162I SC; +CIPR-249 PO; +FLAG500T PO; +MIRA3350 PO; +PROL60SO; +SENN8.6T28 PO; +SYST1SOL4 OS; +[UNRECOGNIZED DRUG - OTHER]
== END ==
LOC: M LAB REF 09:00
PROVIDERS: ATTEND Internal Medicine
DX: R19.7 Diarrhea, unspecified (principal)

== ENCOUNTER → 2021-04-08 | Outpatient (REF) | payer MEDICARE ==
[2021-04-08 18:27] LABS: APPEARANCE, URINE CLEAR (CLEAR); BACTERIA, URINE AUTO NEGATIVE (NEGATIVE); BILIRUBIN, URINE AUTO NEGATIVE (NEGATIVE); BLOOD, URINE BLOOD NEGATIVE (NEGATIVE); COLOR, URINE COLORLESS (YELLOW); GLUCOSE, URINE (UA) AUTO NEGATIVE (NEGATIVE); KETONE, URINE AUTO NEGATIVE (NEGATIVE); LEUKOCYTE ESTERASE, URINE AUTO NEGATIVE (NEGATIVE); NITRITE, URINE AUTO NEGATIVE (NEGATIVE); PROTEIN, URINE AUTO NEGATIVE (NEGATIVE); RBC, URINE AUTO 0 /HPF (0-3); SPECIFIC GRAVITY URINE AUTO 1.001 (1.002-1.035); SQUAMOUS EPITHELIAL CELL UR AU 0 /HPF (0-6); UROBILINOGEN, URINE AUTO 0.2 mg/dL (0.0-2.0); WBC, URINE AUTO 0 /HPF (0-3)
[2021-04-08 18:32] LABS: INR 0.89; PROTHROMBIN TIME 12.4 SECONDS (12.7-14.5)
[2021-04-08 18:33] LABS: PARTIAL THROMBOPLASTIN TIME 26.9 SECONDS (25.9-37.0)
== END ==
LOC: M LAB REF 16:45
PROVIDERS: ATTEND Internal Medicine
DX: Z01.818 Encounter for other preprocedural examination (principal); Z79.01 Long term (current) use of anticoagulants

== ENCOUNTER → 2021-10-10 | Outpatient (REF) | payer MEDICARE ==
[~2021-10-10] MED LIST changes: +CITRACAL MAXIMU1 TAB PO; -CITRTAB16 PO; +FLUC100T3 PO; -LEVO500T3 PO; +LEVO500T4 PO; -MONT10TA10 PO; +MONT10TA97 PO
[2021-10-10 17:31] LABS: C REACTIVE PROTEIN QUANTITATIV 0.5 MG/DL (0.00-0.30); PERCENT SATURATION 22.8 % (13.2-45.0)
== END ==
LOC: M LAB REF 16:18
PROVIDERS: ATTEND Internal Medicine
DX: M25.50 Pain in unspecified joint (principal); E83.110 Hereditary hemochromatosis

== ENCOUNTER → 2021-11-04 | Outpatient (REF) | payer MEDICARE ==
[~2021-11-04] MED LIST changes: +ALBU2.5V10 INH; -ALBU83IN INH
[2021-11-04 17:11] LABS: APPEARANCE, URINE CLEAR (CLEAR); BACTERIA, URINE AUTO NEGATIVE (NEGATIVE); BILIRUBIN, URINE AUTO NEGATIVE (NEGATIVE); BLOOD, URINE BLOOD NEGATIVE (NEGATIVE); COLOR, URINE COLORLESS (YELLOW); GLUCOSE, URINE (UA) AUTO NEGATIVE (NEGATIVE); KETONE, URINE AUTO NEGATIVE (NEGATIVE); LEUKOCYTE ESTERASE, URINE AUTO NEGATIVE (NEGATIVE); NITRITE, URINE AUTO NEGATIVE (NEGATIVE); PROTEIN, URINE AUTO NEGATIVE (NEGATIVE); RBC, URINE AUTO 0 /HPF (0-3); SPECIFIC GRAVITY URINE AUTO 1.002 (1.002-1.035); SQUAMOUS EPITHELIAL CELL UR AU 0 /HPF (0-6); UROBILINOGEN, URINE AUTO 0.2 mg/dL (0.0-2.0); WBC, URINE AUTO 0 /HPF (0-3)
[2021-11-04 17:37] LABS: INR 0.89; PARTIAL THROMBOPLASTIN TIME 29.8 SECONDS (25.9-37.0); PROTHROMBIN TIME 12.4 SECONDS (12.7-14.5)
== END ==
LOC: M LAB REF 16:30
PROVIDERS: ATTEND Internal Medicine
DX: Z01.818 Encounter for other preprocedural examination (principal); Z79.01 Long term (current) use of anticoagulants

== ENCOUNTER → 2021-12-04 | Outpatient (CLI) | payer MEDICARE | LOC: M WHC 09:21 | PROVIDERS: ATTEND Internal Medicine | DX: Z12.31 Encounter for screening mammogram for malignant neoplasm of breast (principal); M81.0 Age-related osteoporosis without current pathological fracture ==

== ENCOUNTER → 2022-03-02 | Outpatient (REF) | payer MEDICARE ==
[~2022-03-02] MED LIST changes: +LEVO1TAB39 PO; -LEVO500T4 PO
== END ==
LOC: M LAB REF 11:54
PROVIDERS: ATTEND Internal Medicine
DX: M81.0 Age-related osteoporosis without current pathological fracture (principal)

== ENCOUNTER → 2022-03-21 | Outpatient (CLI) | payer MEDICARE ==
[2022-03-21 13:23] LABS: BASO # 0.1 10^3/uL (0.0-0.2); BASO % 0.7 % (0.0-1.0); EOS # 0.1 10^3/uL (0.0-0.5); EOS % 1.6 % (0.0-3.0); HEMATOCRIT 42.3 % (36.0-47.0); HEMOGLOBIN 13.5 g/dl (12.0-15.5); LYMPH # 2.3 10^3/uL (1.5-5.0); LYMPH % 28.7 % (24.0-44.0); MEAN CORPUSCULAR HEMOGLOBIN 29.6 pg (27.0-33.0); MEAN CORPUSCULAR HGB CONC 31.9 g/dl (32.0-36.5); MEAN CORPUSCULAR VOLUME 92.8 fl (80.0-96.0); MONO # 0.6 10^3/uL (0.0-0.8); NEUTROPHILS % 61.6 % (36.0-66.0); PLATELET COUNT, AUTOMATED 203 10^3/uL (150-450); RED BLOOD COUNT 4.56 10^6/uL (4.00-5.40); WHITE BLOOD COUNT 8.1 10^3/uL (4.0-10.0)
[2022-03-21 13:42] LABS: ERYTHROCYTE SEDIMENTATION RATE 25 mm/hr (0-30)
[2022-03-21 14:00] LABS: ALBUMIN 3.8 GM/DL (3.2-5.2); BLOOD UREA NITROGEN 11 MG/DL (7-18); CALCIUM LEVEL 9.8 MG/DL (8.8-10.2); CARBON DIOXIDE LEVEL 30 MEQ/L (21-32); CHLORIDE LEVEL 103 MEQ/L (98-107); CREATININE FOR GFR 0.91 MG/DL (0.55-1.30); GLOMERULAR FILTRATION RATE > 60.0 (>39); GLUCOSE, FASTING 99 MG/DL (70-100); PHOSPHORUS LEVEL 4.1 MG/DL (2.5-4.9); POTASSIUM SERUM 3.5 MEQ/L (3.5-5.1); SODIUM LEVEL 138 MEQ/L (136-145)
== END ==
LOC: M LAB 12:45
PROVIDERS: ATTEND Physician Assistant
DX: M35.3 Polymyalgia rheumatica (principal)

== ENCOUNTER → 2022-03-26 | Outpatient (CLI) | payer MEDICARE | LOC: M EKG 09:07 | PROVIDERS: ATTEND Internal Medicine | DX: R55 Syncope and collapse (principal) ==

== ENCOUNTER → 2022-04-13 | Outpatient (REF) | payer MEDICARE | LOC: M LAB REF 11:57 | PROVIDERS: ATTEND Internal Medicine | DX: M31.6 Other giant cell arteritis (principal) ==

== ENCOUNTER → 2022-12-14 | Outpatient (CLI) | payer MEDICARE ==
[~2022-12-14] MED LIST changes: +DICY-61 PO; -DICY10CA13 PO
== END ==
LOC: M WHC 09:03
PROVIDERS: ATTEND Internal Medicine
DX: Z12.31 Encounter for screening mammogram for malignant neoplasm of breast (principal)

== ENCOUNTER → 2022-12-16 | Outpatient (REF) | payer MEDICARE | LOC: M LAB REF 12:10 | PROVIDERS: ATTEND Internal Medicine | DX: G47.62 Sleep related leg cramps (principal) ==

== ENCOUNTER → 2023-10-26 | Outpatient (REF) | payer MEDICARE ==
[~2023-10-26] MED LIST changes: +ROSU5TAB40 PO; -ROSU5TAB5 PO
[2023-10-26 17:04] LABS: PHOSPHORUS LEVEL 4.2 MG/DL (2.4-5.1)
== END ==
LOC: M LAB REF 16:33
PROVIDERS: ATTEND Internal Medicine
DX: Z79.899 Other long term (current) drug therapy (principal); G60.9 Hereditary and idiopathic neuropathy, unspecified; E78.00 Pure hypercholesterolemia, unspecified

== ENCOUNTER → 2023-12-28 | Outpatient (CLI) | payer MEDICARE ==
[~2023-12-28] MED LIST changes: +ESOM1CAP20 PO; -ESOM1CAP5 PO; +ONDA-282 PO; -ONDA4TAB6 PO
== END ==
LOC: M WHC 10:40
PROVIDERS: ATTEND Internal Medicine
DX: Z12.31 Encounter for screening mammogram for malignant neoplasm of breast (principal)

== ENCOUNTER → 2023-12-31 | Outpatient (REF) | payer MEDICARE | LOC: M LAB REF 16:17 | PROVIDERS: ATTEND Physician Assistant Medical | DX: M35.3 Polymyalgia rheumatica (principal) ==

== ENCOUNTER → 2024-03-06 | Outpatient (REF) | payer MEDICARE ==
[~2024-03-06] MED LIST changes: +GABA-1490 PO; -GABA600T4 PO
== END ==
LOC: M LAB REF 16:25
PROVIDERS: ATTEND Nurse Practitioner Family
DX: M35.3 Polymyalgia rheumatica (principal)

== ENCOUNTER → 2024-05-01 | Outpatient (REF) | payer MEDICARE ==
[~2024-05-01] MED LIST changes: -ROSU5TAB40 PO; +ROSU5TAB49 PO
== END ==
LOC: M LAB REF 11:32
PROVIDERS: ATTEND Internal Medicine
DX: G60.9 Hereditary and idiopathic neuropathy, unspecified (principal)

== ENCOUNTER → 2024-05-17 | Outpatient (REF) | payer MEDICARE | LOC: M LAB REF 16:10 | PROVIDERS: ATTEND Internal Medicine | DX: N39.0 Urinary tract infection, site not specified (principal) ==

== ENCOUNTER → 2024-05-19 | Outpatient (CLI) | payer MEDICARE ==
[2024-05-19 19:32] LABS: C REACTIVE PROTEIN QUANTITATIV 0.78 MG/DL (<1.0)
[2024-05-19 19:33] LABS: ALBUMIN 3.2 G/DL (3.2-5.2); BILIRUBIN,TOTAL 0.3 MG/DL (0.3-1.2); CALCIUM LEVEL 10.2 MG/DL (8.3-10.6); CREATININE FOR GFR 0.98 MG/DL (0.55-1.30); GLOMERULAR FILTRATION RATE 58.6 (>39); POTASSIUM SERUM 3.8 MMOL/L (3.5-5.1); TOTAL 25(OH) VITAMIN D 42.2 NG/ML (20.0-100.0); TOTAL PROTEIN 6.3 G/DL (5.7-8.2)
[2024-05-19 19:43] LABS: BASO # 0.1 10^3/uL (0.0-0.2); BASO % 0.9 % (0.0-1.0); EOS # 0.1 10^3/uL (0.0-0.5); HEMATOCRIT 39.2 % (36.0-47.0); HEMOGLOBIN 12.4 g/dl (12.0-15.5); LYMPH # 1.9 10^3/uL (1.5-5.0); LYMPH % 21.5 % (24.0-44.0); MEAN CORPUSCULAR HEMOGLOBIN 30.8 pg (27.0-33.0); MEAN CORPUSCULAR HGB CONC 31.6 g/dl (32.0-36.5); MEAN CORPUSCULAR VOLUME 97.5 fl (80.0-96.0); MONO # 0.7 10^3/uL (0.0-0.8); NEUTROPHILS # 5.7 10^3/uL (1.5-8.5); NEUTROPHILS % 63.7 % (36.0-66.0); PLATELET COUNT, AUTOMATED 176 10^3/uL (150-450); RED BLOOD COUNT 4.02 10^6/uL (4.00-5.40)
[2024-05-19 19:50] LABS: ERYTHROCYTE SEDIMENTATION RATE 49 mm/hr (0-30)
== END ==
LOC: M WUC 11:10
PROVIDERS: ATTEND Internal Medicine
DX: M31.5 Giant cell arteritis with polymyalgia rheumatica (principal); M81.0 Age-related osteoporosis without current pathological fracture; E55.9 Vitamin D deficiency, unspecified; Z79.899 Other long term (current) drug therapy

== ENCOUNTER 2024-12-06 10:18 | Emergency (ER) | payer MEDICARE ==
[~2024-12-06] VITALS: Ht 149.9 cm; Wt 47.7 kg
[~2024-12-06 10:18] MED LIST changes: -CLOT10TR MT; +CLOT10TR11 MT; +DENO60SY2; -PRED50TA PO; +PRED50TA57 PO; -PROL60SO
[2024-12-06 11:40] LABS: BASO # 0.1 10^3/uL (0.0-0.2); BASO % 0.9 % (0.0-1.0); EOS # 0.2 10^3/uL (0.0-0.5); EOS % 3.2 % (0.0-3.0); LYMPH # 1.3 10^3/uL (1.5-5.0); LYMPH % 20.0 % (24.0-44.0); MONO # 0.7 10^3/uL (0.0-0.8); MONO % 10.1 % (2.0-8.0); NEUTROPHILS # 4.4 10^3/uL (1.5-8.5); NEUTROPHILS % 65.5 % (36.0-66.0); PLATELET COUNT, AUTOMATED 162 10^3/uL (150-450)
[2024-12-06 12:01] LABS: CALCIUM LEVEL 9.3 MG/DL (8.3-10.6); CARBON DIOXIDE LEVEL 27 MMOL/L (20-31); CHLORIDE LEVEL 103 MMOL/L (98-107); CK-MB VALUE MASS 1.2 NG/ML (<3.6); CPK CREATINE PHOSPHOKINASE 62 U/L (34-145); CREATININE FOR GFR 0.89 MG/DL (0.55-1.30); GLOMERULAR FILTRATION RATE 66.3 (>39); MB/CK RELATIVE INDEX 1.93 (< OR =4); POTASSIUM SERUM 4.2 MMOL/L (3.5-5.1); SODIUM LEVEL 141 MMOL/L (136-145)
[2024-12-06 12:56] LABS: CK-MB VALUE MASS 1.1 NG/ML (<3.6)
[2024-12-06 12:58] LABS: CPK CREATINE PHOSPHOKINASE 61.0 U/L (34-145); MB/CK RELATIVE INDEX 1.8 (< OR =4)
[2024-12-06] MEDS ORDERED: ISOVUE-370 76% 100 ML VIAL As Ordered ONE (13:47)
[2024-12-06] MEDS: ASPIRIN 81 MG CHEWABLE TABLET PO ONE (13:52)
[2024-12-06] MEDS: diphenhydrAMINE 50 MG/ML VIAL IV STA (13:53)
[2024-12-06 13:59] VITALS: BP 119/58
[2024-12-06] MEDS: NITROGLYCERIN 0.4MG SUBL TABLET SL PRN (13:59)
[2024-12-06 15:01] LABS: CK-MB VALUE MASS 1.5 NG/ML (<3.6)
[2024-12-06 15:03] LABS: CPK CREATINE PHOSPHOKINASE 68.0 U/L (34-145); MB/CK RELATIVE INDEX 2.2 (< OR =4)
[2024-12-06 16:25] VITALS: O2SAT 96
[2024-12-06 17:00] VITALS: BP 137/63; TEMP 98.3; O2SAT 98
== END 2024-12-06 17:30 | disposition home or self-care (01) ==
LOC: M ED 10:18
DX: R06.02 Shortness of breath (principal); J45.909 Unspecified asthma, uncomplicated; Z88.6 Allergy status to analgesic agent; Z88.8 Allergy status to other drugs, medicaments and biological substances; Z91.041 Radiographic dye allergy status; Z79.2 Long term (current) use of antibiotics; Z79.899 Other long term (current) drug therapy
CPT/HCPCS: 71045; 71275; 80048; 82550; 82553; 84484; 85025; 87486; 87581; 87633; 87798; 93005; 93041; 94760; 96374; 99285; J1200; J2919; Q9967

== ENCOUNTER → 2025-01-21 | Outpatient (CLI) | payer MEDICARE | LOC: M RAD 11:29 | PROVIDERS: ATTEND Internal Medicine | DX: M25.571 Pain in right ankle and joints of right foot (principal) ==